=== PATIENT | female | born 1945 | race Caucasian/White ===

== ENCOUNTER 2018-12-02 07:45 | Outpatient (CLI) | payer MEDICARE, SELFPAY ==
[2018-12-02 09:50] LABS: ALT 11 U/L (12-78); AST 13 U/L (15-37); Albumin 3.6 g/dL (3.4-5.0); Alkaline Phosphatase 104 U/L (46-116); Anion Gap 8.9 mmol/L (3-11); BUN 26 mg/dL (7-18); Bilirubin, Total 0.6 mg/dL (0.2-1.0); CO2 28.1 mmol/L (21.0-32.0); CREATININE 0.91 mg/dL (0.55-1.02); Calcium 9.2 mg/dL (8.5-10.1); Chloride 103 mmol/L (98-107); Cholesterol 188 mg/dL (50-200); Glucose 95 mg/dL (70-100); HDL Cholesterol 49 mg/dL (40-60); LDL CHOLESTEROL 119 mg/dL (<100); Potassium 4.4 mmol/L (3.5-5.1); Sodium 140 mmol/L (136-145); TSH (W/Ref FT4) 3.55 uIU/mL (0.358-3.74); Total Protein 6.7 g/dL (6.4-8.2); Triglyceride 90 mg/dL (30-150); Vitamin B12 1383 pg/mL (193-986)
== END 2018-12-02 08:05 ==
DX: E03.9 Hypothyroidism, unspecified (principal); I10 Essential (primary) hypertension; K21.0 Gastro-esophageal reflux disease with esophagitis; D51.8 Other vitamin B12 deficiency anemias; E53.8 Deficiency of other specified B group vitamins; F32.9 Major depressive disorder, single episode, unspecified; F41.9 Anxiety disorder, unspecified; G20 Parkinson's disease; G89.21 Chronic pain due to trauma; Z13.220 Encounter for screening for lipoid disorders
CPT/HCPCS: 36415; 80053; 80061; 83721; 82607; 84443

== ENCOUNTER 2019-05-31 07:56 | Outpatient (CLI) | payer MEDICARE, SELFPAY ==
--- NOTE | 2019-05-31 10:46 | DI.US_ITS ---
EXAM: US BREAST LT COMPLETE CLINICAL HISTORY: 1CM CYST ON LEFT UPPER CHEST/BREAST, H/O PREVIOUS BIOPSY BUT NO CANCER, N60.02, N6 0.09. TECHNIQUE: Ultrasound was performed using standard protocol. COMPARISON: THERE ARE NO COMPARISON BREAST ULTRASOUNDS AVAILABLE FINDINGS: There is a 1.3 x 1.3 x 1.8 cm mass in the left breast at 11 o'clock 10 cm from the nipple. Borders o f the lesion are somewhat irregular. Posterior shadowing is identified. The findings are certainly suspicious for a neoplasm. Further evaluation with mammograms is recommended. The mass could be bio psied with the ultrasound guidance. This is a grade 0 ultrasound examination and further evaluation with mammograms is suggested.
== END 2019-05-31 08:16 ==
DX: N60.02 Solitary cyst of left breast (principal); N63.22 Unspecified lump in the left breast, upper inner quadrant
CPT/HCPCS: 76642

== ENCOUNTER 2019-06-01 01:10 | Outpatient (CLI) | payer MEDICARE, SELFPAY ==
--- NOTE | 2019-06-01 07:40 | DI.MAMMO_ITS ---
EXAM: MG MAMMO DIAGNOSTIC BI CLINICAL HISTORY: LUMP OF BREAST/ABNORMAL U/S. TECHNIQUE: Mammograms were interpreted according to the usual protocol including computer analysis w [employer] Count CAD system, tomosynthesis and C-view imaging. COMPARISON: Comparison is made with 12/02/17. FINDINGS: The breasts are of moderate radiodensity. When compared with the prior examination of 12/02/2017, int erval development of a 14 mm posterior left breast mass is identified and is seen only on the mediola teral image. There are no suspicious calcifications. Recent ultrasound demonstrated the left breast mass which is highly suspicious for a malignancy. IMPRESSION: This is a category 4 examination. Further evaluation with a biopsy is recommended. BI-RADS Cat 4 - Suspicious Abnormality: Biopsy should be considered. Breast Density - Category B - Scattered areas of fibroglandular density.
== END 2019-06-01 01:30 ==
DX: N63.22 Unspecified lump in the left breast, upper inner quadrant (principal)
CPT/HCPCS: 77062; 77066; G0279

== ENCOUNTER → 2019-06-06 13:41 | Outpatient (BNVA) | payer MEDICARE, SELFPAY | PROVIDERS: Visit Provider Surgery | DX: C50.912 Malignant neoplasm of unspecified site of left female breast (principal) | CPT/HCPCS: 19100; 99204; 99215 ==

== ENCOUNTER 2019-06-06 15:48 | Outpatient (REF) | payer MEDICARE, SELFPAY ==
--- NOTE | 2019-06-06 15:02 | BREAST_PTH ---
PATIENT: Daja Tolentino LOC: [facility] U#:[id number] AGE/SX: 73/F ROOM: RE06/06/[address]: Liya Hernandez MD : 1945 BED: DIS: 06/06/2019 SPEC #: [id number] RECD: 06/06/19 17:48 STATUS: JEANINE REElzbieta #: [id number] HUMA: 06/06/19 15:[address]: Liya Hernandez DEPT: Surgical Specimen RECD BY: Jnay Sellers ENTERED: 06/06/19 17:49 SP TYPE: Breast OTHR DR: Candie Guy APRN Tissues: 1 - BREAST BX NEEDLE Procedures: GROSS AND MICRO LEVEL 4 HERCEPTEST ESTROGEN/PROGESTERONE RECEPTOR IPEX STAIN Comments: [id number]
== END 2019-06-06 16:08 ==
LOC: LBN 15:48
PROVIDERS: Visit Provider Surgery
DX: C50.912 Malignant neoplasm of unspecified site of left female breast (principal); Z17.0 Estrogen receptor positive status [ER+]
CPT/HCPCS: 88305; 88360

== ENCOUNTER → 2019-06-13 13:53 | Outpatient (BNVA) | payer MEDICARE, SELFPAY | PROVIDERS: Visit Provider Surgery | DX: C50.212 Malignant neoplasm of upper-inner quadrant of left female breast (principal); I10 Essential (primary) hypertension | CPT/HCPCS: 99214 ==

== ENCOUNTER 2019-06-14 09:23 | Outpatient (CLI) | payer MEDICARE, SELFPAY ==
--- NOTE | 2019-06-14 09:53 | DI.RAD_ITS ---
EXAM: XR CHEST 2V PA LATERAL INDICATION: Left breast cancer C50.912. COMPARISON: CHEST 2 VIEWS PA,LAT from 12/29/2008 TECHNIQUE: 2D digital imaging was performed. FINDINGS: The heart size is normal. The lungs are well inflated and clear. No infiltrate, effusion or mass is seen. There are no suspicious bony abnormalities. IMPRESSION: No acute abnormality..
[2019-06-14 09:58] LABS: Abs Immature Grans 0.01 k/cumm (0.0-0.09); Absolute Basophil Count 0.04 k/cumm (0.0-0.2); Absolute Eosinophil Count 0.24 k/cumm (0.0-0.7); Absolute Lymphocyte Count 1.82 k/cumm (1.2-3.4); Absolute Monocyte Count 0.56 k/cumm (0.11-0.7); Absolute Neutrophil Count 4.14 k/cumm (1.2-6.7); Basophils % 0.6; Eosinophils % 3.5; HCT 39.5 % (36.0-46.0); HGB 12.5 g/dL (12.0-15.5); Immature Grans % 0.1; Lymphocytes % 26.7; Mean Corp. HGB Concentration 31.6 g/dL (32.0-36.0); Mean Corpuscular Hemoglobin 28.7 pg (27.0-33.0); Mean Corpuscular Volume 90.8 fL (80-95); Mean Platelet Volume 11.6 fL (8.0-11.0); Monocytes % 8.2; Neutrophils % 60.9; Platelet Count 244 x1000/uL (130-400); RBC 4.35 m/cumm (4.00-5.20); RBC Distribution Width 13.5 % (11.7-14.6); White Blood Cell Count 6.81 k/cumm (4.4-10.8)
[2019-06-14 10:55] LABS: ALT 8 U/L (14-59); AST 14 U/L (15-37); Albumin 3.6 g/dL (3.4-5.0); Alkaline Phosphatase 104 U/L (46-116); Anion Gap 7.3 mmol/L (3-11); BUN 25 mg/dL (7-18); Bilirubin, Total 0.5 mg/dL (0.2-1.0); CO2 28.7 mmol/L (21.0-32.0); CREATININE 0.83 mg/dL (0.55-1.02); Calcium 8.7 mg/dL (8.5-10.1); Chloride 104 mmol/L (98-107); Glucose 118 mg/dL (70-100); Sodium 140 mmol/L (136-145); Total Protein 6.6 g/dL (6.4-8.2)
[2019-06-14 11:06] LABS: Calculated LDL 119 mg/dL; Cholesterol 193 mg/dL (50-200); HDL Cholesterol 47 mg/dL (40-60); TSH (W/Ref FT4) 2.49 uIU/mL (0.36-3.74); Triglyceride 136 mg/dL (30-150)
[2019-06-14 23:02] LABS: Ferritin 26 ng/mL (8-388)
== END 2019-06-14 09:43 ==
PROVIDERS: Visit Provider Surgery
DX: E03.9 Hypothyroidism, unspecified (principal); F32.9 Major depressive disorder, single episode, unspecified; G20 Parkinson's disease; G47.00 Insomnia, unspecified; I10 Essential (primary) hypertension; Z13.220 Encounter for screening for lipoid disorders; C50.912 Malignant neoplasm of unspecified site of left female breast
CPT/HCPCS: 36415; 80053; 80061; 71046; 82728; 84443; 85025

== ENCOUNTER 2019-06-23 06:50 | Day surgery (SDC) | payer MEDICARE, SELFPAY ==
[2019-06-23] VITALS (12 sets, daily range): BP systolic 140–196; BP diastolic 50–89; PULSE 71–88; RESP 10–21; TEMP 36.3–37; O2SAT 94–100
--- NOTE | 2019-06-23 07:30 | DI.NM_ITS ---
EXAM: NM SENTNODE INJ ONLY CLINICAL HISTORY: Breast Cancer,C50.912. TECHNIQUE: Injected Dose: 1 mCi Tc-99m filtered sulfur colloid were administered subcutaneously in t he left breast by Dr. Hernandez. Images: None were obtained. COMPARISON: No exams were available for comparison
[2019-06-23] MEDS: Lactated Ringers 1,000 ML 80 ML IV ×3 (08:31→13:43)
--- NOTE | 2019-06-23 12:30 | BREAST_PTH ---
PATIENT: Daja Tolentino LOC: [facility] U#:[id number] AGE/SX: 73/F ROOM: RE06/23/[address]: Liya Hernandez MD : 1945 BED: DIS: 06/23/2019 SPEC #: [id number] RECD: 06/24/19 12:05 STATUS: JEANINE REElzbieta #: [id number] HUMA: 06/23/19 12:[address]: Liya Hernandez DEPT: Surgical Specimen RECD BY: Jany Sellers ENTERED: 06/24/19 12:08 SP TYPE: Breast OTHR DR: Candie Guy APRN Tissues: 1 - BREAST INCISION/EXCISION 2 - BREAST INCISION/EXCISION 3 - BREAST INCISION/EXCISION 4 - BREAST INCISION/EXCISION Procedures: IMMUNOPEROXIDASE STAIN GROSS AND MICRO LEVEL 5 SPECIAL STAIN 1 Comments: [id number] (ALL SPECIMENS RADIOACTIVE)
--- NOTE | 2019-06-23 13:18 | PDOC.DSDIS_ITS ---
Discharge Plan Disposition Patient Disposition: HOME Condition: Good Discharge Details Reason For Visit: Left breast lumpectomy and sentinel node biopsy Attending Provider: Liya Hernandez Primary Care Provider: Candie Guy Home Meds and New Rx's Prescriptions: New hydrocodone-acetaminophen 5-325 mg Tablet 1 tab PO Q4H PRN PRN (Reason: Pain) Qty: 20 RF: 0 Continued acetaminophen [Tylenol Extra Strength] 500 mg tablet 500 mg PO Q6H PRNRF: 0 cholecalciferol (vitamin D3) 1,000 UNIT tablet 1,000 unit PO DAILY Qty: 100 RF: 4 nystatin 60 GM powder 1 angi Topical BID PRNQty: 60 RF: 11 gabapentin 300 mg capsule 300 mg PO TID Qty: 300 RF: 4 lorazepam [Ativan] 1 mg tablet 1 mg PO BID PRN Qty: 30 RF: 0 levothyroxine 100 mcg tablet 100 mcg PO DAILY Qty: 30 RF: 11 escitalopram oxalate [Lexapro] 10 mg tablet 10 mg PO DAILY Qty: 30 RF: 11 carbidopa-levodopa 50-200 mg tablet extended release 1 tab PO TID Qty: 90 RF: 11 omeprazole 40 mg capsule,delayed release(DR/EC) 40 mg PO DAILY Qty: 30 RF: 11 naproxen 375 mg tablet 375 mg PO BID PRN (Reason: pain) Qty: 180 RF: 3 Discharge Instructions Additional Instructions: The top bandage can be removed tomorrow. The steri strips will usually stick for about a week. When the edges start to curl up, they can be removed. It is okay to shower tomorrow, the water can run over the steri strips Do not swim or soak in a tub for two weeks Call for any concerns including fever, increased pain, vomiting, incision redness or drainage. Do not lift more than 15 pounds for two weeks. Walking and stairs are fine. Do not drive if on narcotic pain meds or if limited by pain. May use Tylenol alternating with ibuprofen for pain control. Ice is also an option. The maximum dose for Tylenol is 4000 mg/day. May use ibuprofen 800 mg every 8 hours as needed. If concerned about constipation, you may use a stool softener or milk of magnesia. Referrals: Liya Hernandez MD [ [facility] STAFF PHYSICIAN] - (Return in 7-10 days) Activity:: Light for two weeks Remove Dressings/Wound Care:: 24 hours Shower/Bathe:: 24 hours Diet:: As Tolerated Discharge Orders Discharge Orders: Discharge Order (Routine); Ordered 06/23/19 Ordered By: Liya Hernandez DS: Diagnosis Discharge Diagnosis (1) Breast cancer, left: Status: Acute
[2019-06-23] MEDS: fentaNYL 100 MCG/2 ML VIAL IVP ×2 (13:41→14:02)
[2019-06-23] MEDS: HYDROcodone 5/Acetaminophen 325 TAB PO ×2 (14:22→15:19)
[2019-06-23] MEDS: Ibuprofen 800 MG TAB PO (14:53)
--- NOTE | 2019-06-24 11:02 | ROE_ITS ---
DATE OF PROCEDURE: June 23, 2019 PREOPERATIVE DIAGNOSIS: Left breast cancer. POSTOPERATIVE DIAGNOSIS: Same. PROCEDURE: 1. Left breast lumpectomy. 2. Left axillary sentinel node biopsy. SURGEON: Liya Hernandez M.D. ANESTHESIA: Local and general. INDICATIONS: This is a 73-year-old woman who noted a left breast mass. Core biopsy revealed this to be an invasive ductal cancer. She presents for surgical treatment. PROCEDURE: The patient was taken to nuclear medicine preoperatively and underwent injection of radioactive sulfur colloid into the areolar region. Later in the morning she was taken to the Operating Room. After induction of general anesthetic, her left areola was cleansed with an alcohol swab and then 5cc of methylene blue was injected into the lateral areola. Her left breast and axilla were then prepped and draped sterilely. An area of high uptake was identified in the left axilla using the gamma probe. Skin here was infiltrated with local anesthetic and a small incision made. Subcutaneous tissue was divided with cautery. The lymph node was identified and grasped with an Allis. This was excised completely with cautery. The counts outside of the axilla measured 32,000. There was a second area of high uptake in the axilla. The node at this location was slightly blue. It was removed with cautery with the counts being in the 14,000 range. The background count was 2900. Palpation revealed no palpable lymph nodes. There was good hemostasis so the skin was closed with a running #4-0 Monocryl subcuticular stitch. The lumpectomy was then performed. The mass was located at the 10 to 11 o'clock position, fairly near to the sternum. The skin was infiltrated with local anesthetic and an elliptical incision made over the mass. Skin flaps were raised superiorly and inferiorly and then a wide lumpectomy specimen taken using Metzenbaum scissors. The specimen was labeled with a short stitch superior and long stitch lateral. The mass was noted to be closer to the medial margin, so I did take an additional medial margin. Of note, the deep margin was carried down to the pectoralis muscle. There was a vessel that was clamped and tied with a Vicryl tie. The wound was irrigated and suctioned clean. There was good hemostasis. The deep dermis was approximated with buried interrupted #4-0 Monocryl sutures and then the skin closed with a running #4-0 Monocryl subcuticular stitch. She tolerated the procedure well and was stable to recovery. cc: MANNY Aleman
== END 2019-06-23 17:00 | disposition home or self-care (01) ==
PROVIDERS: Visit Provider Surgery
PROC: (CPT 38525; principal; 2019-06-23 11:30)
DX: C50.212 Malignant neoplasm of upper-inner quadrant of left female breast (principal); Z17.0 Estrogen receptor positive status [ER+]; I10 Essential (primary) hypertension; K21.9 Gastro-esophageal reflux disease without esophagitis
CPT/HCPCS: 38525; 19301; 38792; A9541; 88307; 88312; 88361; J2250; J2405; J3010

== ENCOUNTER → 2019-06-30 10:40 | Outpatient (BNVA) | payer MEDICARE, SELFPAY | PROVIDERS: Visit Provider Surgery | DX: C50.912 Malignant neoplasm of unspecified site of left female breast (principal) ==

== ENCOUNTER → 2019-07-28 09:15 | Outpatient (BNVA) | payer MEDICARE, SELFPAY | PROVIDERS: Visit Provider Surgery | DX: Z48.89 Encounter for other specified surgical aftercare (principal) ==

== ENCOUNTER 2019-08-03 01:39 | Outpatient (CLI) | payer MEDICARE, SELFPAY ==
--- NOTE | 2019-08-03 17:10 | DI.DEXA_ITS ---
EXAM: XR DEXA BONE DENSITY W/WO DANIEL CLINICAL HISTORY: ASYMPTOMATIC MENOPAUSAL STATE Z78.0, BREAST CANCER STAGE 1 C50.912, SNF USE OF AROMATASE INHIBITOR, Z79.811 TECHNIQUE: DEXA scan was performed according to the usual protocol. COMPARISON: SEPTEMBER 2007 FINDINGS: Findings for left hip scanning are T-score 0.9 with left femoral neck T-score 0.2. Prior examination of September 2007 showed left hip scope T score 1.0. Lumbar spine scanning shows T-score 2.5. Prior examination showed T-score 1.3 in September 2007. Left forearm scanning shows T-score -0.4. IMPRESSION: Findings consistent with normal bone density according to the WHO criteria. Please note that the late ral vertebral scanogram shows no evidence of a vertebral compression fracture.
== END 2019-08-03 01:59 ==
PROVIDERS: Visit Provider Internal Medicine
DX: C50.912 Malignant neoplasm of unspecified site of left female breast (principal); Z79.811 Long term (current) use of aromatase inhibitors; Z13.820 Encounter for screening for osteoporosis; Z78.0 Asymptomatic menopausal state
CPT/HCPCS: 77080

== ENCOUNTER 2019-08-29 09:20 | Outpatient (CLI) | payer MEDICARE, SELFPAY ==
[2019-08-29 09:40] LABS: Abs Immature Grans 0.01 k/cumm (0.0-0.09); Absolute Basophil Count 0.04 k/cumm (0.0-0.2); Absolute Eosinophil Count 0.28 k/cumm (0.0-0.7); Absolute Lymphocyte Count 2.09 k/cumm (1.2-3.4); Absolute Monocyte Count 0.59 k/cumm (0.11-0.7); Absolute Neutrophil Count 4.32 k/cumm (1.2-6.7); Basophils % 0.5; Eosinophils % 3.8; HGB 12.7 g/dL (12.0-15.5); Immature Grans % 0.1; Lymphocytes % 28.5; Mean Corp. HGB Concentration 31.8 g/dL (32.0-36.0); Mean Corpuscular Hemoglobin 28.3 pg (27.0-33.0); Mean Corpuscular Volume 89.3 fL (80-95); Mean Platelet Volume 11.2 fL (8.0-11.0); Neutrophils % 59.1; Platelet Count 274 x1000/uL (130-400); RBC 4.48 m/cumm (4.00-5.20); RBC Distribution Width 13.3 % (11.7-14.6); White Blood Cell Count 7.33 k/cumm (4.4-10.8)
[2019-08-29 10:44] LABS: ALT 21 U/L (14-59); AST 17 U/L (15-37); Albumin 3.5 g/dL (3.4-5.0); Alkaline Phosphatase 98 U/L (46-116); Anion Gap 8.3 mmol/L (3-11); BUN 24 mg/dL (7-18); Bilirubin, Total 0.4 mg/dL (0.2-1.0); CO2 27.7 mmol/L (21.0-32.0); CREATININE 0.81 mg/dL (0.55-1.02); Calcium 9.3 mg/dL (8.5-10.1); Chloride 106 mmol/L (98-107); Glucose 113 mg/dL (74-106); Potassium 4.3 mmol/L (3.5-5.1); Sodium 142 mmol/L (136-145); Total Protein 6.6 g/dL (6.4-8.2)
== END 2019-08-29 09:40 ==
PROVIDERS: Visit Provider Internal Medicine
DX: C50.912 Malignant neoplasm of unspecified site of left female breast (principal); Z17.0 Estrogen receptor positive status [ER+]
CPT/HCPCS: 36415; 80053; 85025

== ENCOUNTER 2019-11-29 08:33 | Outpatient (CLI) | payer MEDICARE, SELFPAY ==
[2019-11-29 09:06] LABS: Absolute Basophil Count 0.03 k/cumm (0.0-0.2); Absolute Eosinophil Count 0.23 k/cumm (0.0-0.7); Absolute Monocyte Count 0.32 k/cumm (0.11-0.7); Absolute Neutrophil Count 3.86 k/cumm (1.2-6.7); Basophils % 0.5; Eosinophils % 3.7; HCT 39.8 % (36.0-46.0); HGB 12.6 g/dL (12.0-15.5); Lymphocytes % 28.8; Mean Corp. HGB Concentration 31.7 g/dL (32.0-36.0); Mean Corpuscular Hemoglobin 28.3 pg (27.0-33.0); Mean Corpuscular Volume 89.4 fL (80-95); Mean Platelet Volume 11.6 fL (8.0-11.0); Monocytes % 5.1; Neutrophils % 61.9; Platelet Count 261 x1000/uL (130-400); RBC 4.45 m/cumm (4.00-5.20); RBC Distribution Width 14.3 % (11.7-14.6); White Blood Cell Count 6.24 k/cumm (4.4-10.8)
[2019-11-29 09:24] LABS: ALT 11 U/L (14-59); AST 17 U/L (15-37); Albumin 3.4 g/dL (3.4-5.0); Alkaline Phosphatase 102 U/L (46-116); Anion Gap 9.7 mmol/L (3-11); BUN 26 mg/dL (7-18); Bilirubin, Total 0.5 mg/dL (0.2-1.0); CO2 26.3 mmol/L (21.0-32.0); CREATININE 0.99 mg/dL (0.55-1.02); Chloride 105 mmol/L (98-107); Estimated GFR 54.54 (mL/min/1.73m2); Glucose 124 mg/dL (74-106); Potassium 3.9 mmol/L (3.5-5.1); Sodium 141 mmol/L (136-145); Total Protein 6.9 g/dL (6.4-8.2)
== END 2019-11-29 08:53 ==
PROVIDERS: Visit Provider Internal Medicine
DX: C50.212 Malignant neoplasm of upper-inner quadrant of left female breast (principal); Z17.0 Estrogen receptor positive status [ER+]
CPT/HCPCS: 36415; 80053; 85025

== ENCOUNTER 2020-05-21 09:36 | Outpatient (CLI) | payer MEDICARE, MEDICAID, SELFPAY ==
[2020-05-21 10:32] LABS: Hemoglobin A1C 5.5 % (<5.7)
[2020-05-21 11:26] LABS: Anion Gap 6.8 mmol/L (3-11); BUN 18 mg/dL (7-18); CO2 29.2 mmol/L (21.0-32.0); CREATININE 0.87 mg/dL (0.55-1.02); Calcium 9.4 mg/dL (8.5-10.1); Chloride 105 mmol/L (98-107); Glucose 89 mg/dL (74-106); Potassium 4.5 mmol/L (3.5-5.1); Sodium 141 mmol/L (136-145); TSH (W/Ref FT4) 1.47 uIU/mL (0.36-3.74)
== END 2020-05-21 09:56 ==
DX: E03.9 Hypothyroidism, unspecified (principal); R73.01 Impaired fasting glucose; R63.8 Other symptoms and signs concerning food and fluid intake; G47.00 Insomnia, unspecified
CPT/HCPCS: 36415; 80048; 83036; 84443

== ENCOUNTER 2020-06-12 00:46 | Outpatient (CLI) | payer MEDICARE, MEDICAID, SELFPAY ==
--- NOTE | 2020-06-12 14:29 | DI.MAMMO_ITS ---
EXAM: MG MAMMO SCREENING 60 MIN DUR CLINICAL HISTORY: breast cancer screening,PERSONAL H/O BREAST CA,Z85.3 TECHNIQUE: Mammograms were interpreted according to the usual protocol including computer analysis w Pro[employer]ible CAD system, tomosynthesis and C-view imaging. COMPARISON: FINDINGS: The patient has reportedly had lumpectomy for breast carcinoma of the upper inner quadrant of the lef t breast within the last year. There is irregular radiodensity in this region consistent with postsu rgical change. No mass identified elsewhere in either breast. No clumped microcalcification seen. No other significant change in appearance comparison studies including November 2017. IMPRESSION: Presumed postsurgical changes left breast. No specific evidence of malignancy at this time. Follow -up mammogram requested in 12 months. BI-RADS Category 2 - Benign Findings Breast Density - Category B - Scattered areas of fibroglandular density
== END 2020-06-12 01:06 ==
DX: Z12.31 Encounter for screening mammogram for malignant neoplasm of breast (principal); Z85.3 Personal history of malignant neoplasm of breast
CPT/HCPCS: 77063; 77067

== ENCOUNTER 2020-09-26 22:20 | Emergency (ER) | payer MEDICARE, MEDICAID, SELFPAY ==
--- NOTE | 2020-09-26 22:15 | RT.EKG_ITS ---
APPROVED REPORT Exam: Resting ECG Patient Location: E HR:66 bpm ECG Measurements Heart Rate 66 AXIS FL 146 P 31 QRSd 94 QRS -17 QT 420 T -1 QTc 440 Conclusion Sinus rhythm...normal P axis, V-rate 60- 99
[2020-09-26 22:25] VITALS: BP 175/85; PULSE 80; RESP 22; TEMP 36.1; O2SAT 98
--- NOTE | 2020-09-26 22:30 | DI.CT_ITS ---
EXAM: CT THORAX ABD/PEL CTA CLINICAL HISTORY: left sided chest and abdominal pain. TECHNIQUE: Imaging Protocol: Axial CT angiography was performed with multi-slice acquisition and m ulti-planar and/or 3D reconstructions. CONTRAST MATERIAL: Intravenous: Omnipaque 350 Contrast volume:100 mL Oral: No COMPARISON: CT CHEST WITH CONTRAST from 01/01/2009 FINDINGS: CHEST: Tracheobronchial tree: Patent where visualized. Pulmonary parenchyma: No consolidation or dominant measurable mass. No architectural distortion. Scar ring and/or atelectasis is in the lung bases. Pulmonary Arteries: No evidence of filling defect to suggest pulmonary emboli. Mediastinum and Toyin: No dominant adenopathy or fluid collection. There is a large hiatal hernia. Visualized thyroid: Unremarkable. Pleura: No effusion or pneumothorax. Heart: The heart is not dilated. No coronary artery calcifications are seen. No pericardial effusion. Aorta: Thoracic aorta non-dilated. Atherosclerosis. No evidence of dissection. Soft Tissues: Unremarkable. Bones: Degenerative changes. ABDOMEN AND PELVIS: Abdomen: Celiac axis/mesenteric arteries: No evidence of occlusion or significant stenosis. Renal Arteries: No evidence of occlusion or significant stenosis. There is a single renal artery per fusing each kidney. Atherosclerosis at the origin of the right renal artery. Aorta: No evidence of occlusion or significant stenosis. No aneurysm or dissection. Atherosclerosi s. Pelvis: Iliac Arteries: No evidence of occlusion or significant stenosis. Atherosclerosis. Common Femoral Arteries: No evidence of occlusion or significant stenosis. ABDOMEN: Liver: Diffuse decreased attenuation of the liver consistent with fatty infiltration. No measurable mass. Portal, Superior Mesenteric, and Splenic Veins: Unremarkable. Gallbladder and Biliary Tract: No radiodense calculus or dilation. Pancreas: Normal density, no abnormal calcifications or inflammatory process. Spleen: Normal. Adrenals: No masses seen. Kidneys: Normal size, contour and axis. No radiodense stones or obstructive uropathy. No masses seen. Bowel: No obstruction or bowel wall thickening. No evidence of appendicitis. There is a large hiatal hernia. Peritoneal Cavity: No ascites, collection or mesenteric inflammatory response. No free air. Lymph Nodes: Within normal limits. Bones: Degenerative change. Soft Tissues: Unremarkable. PELVIS: Bladder: Symmetric distention, no gross wall thickening. Reproductive Organs: Status post hysterectomy. Lymph Nodes: Within normal limits. Bones: Within normal limits. IMPRESSION: 1. Normal CT Angiogram of the chest, abdomen and pelvis. 2. No acute abdominal or pelvic process. 3. No acute pulmonary process. RADIATION DOSE DELIVERED: 1,120.48mGy.cm Total DLP DATA REPOSITORY: All CT scans at this facility are submitted to the National Radiology Data Registry (NRDR) Dose Index Registry (DIR) with the [employer] (ACR). RADIATION OPTIMIZATION: All CT scans at this facility use at least one of these dose optimization te chniques: automated exposure control; mA and/or kV adjustment per patient size (includes targeted exa ms where dose is matched to clinical indication); or iterative reconstruction.
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
[2020-09-26] MEDS: Omnipaque 350 MG/ML 100 ML BTL IJ (22:48)
[2020-09-26] MEDS: Normal Saline - Diluent 50 ML VIAL IV (22:49)
[2020-09-26 22:51] LABS: Abs Immature Grans 0.02 10^3/uL (0.0-0.06); Absolute Basophil Count 0.04 10^3/uL (0.0-0.2); Absolute Eosinophil Count 0.24 10^3/uL (0.0-0.7); Absolute Lymphocyte Count 3.11 10^3/uL (1.2-3.4); Absolute Monocyte Count 0.91 10^3/uL (0.1-0.8); Absolute Neutrophil Count 3.79 10^3/uL (1.2-6.7); Basophils % 0.5; HCT 38.1 % (36.0-46.0); Immature Grans % 0.2; Lymphocytes % 38.3; MCH 28.1 pg (27.0-33.0); MCHC 31.5 % (32.0-36.0); MCV 89.2 fL (80-95); MPV 11.6 fL (8.0-11.0); Monocytes % 11.2; Neutrophils % 46.8; Nucleated RBC 0 %; Platelet Count 259 10^3/uL (130-400); RBC 4.27 10^6/uL (3.93-5.22); RDW-SD 42.7 fL; WBC 8.11 10^3/uL (4.4-10.8)
[2020-09-26] MEDS: Acetaminophen 500 MG TAB 1000 MG PO (22:58)
[2020-09-26 23:09] LABS: INR 1.2 (0.9-1.1); PTT Activated 26.1 sec (21.0-27.5); Prothrombin Time 11.6 sec (9.3-11.0)
[2020-09-26 23:11] LABS: ALT 12 U/L (14-59); AST 16 U/L (15-37); Albumin 3.4 g/dL (3.4-5.0); Alkaline Phosphatase 122 U/L (46-116); Anion Gap 6.2 mmol/L (3-11); BUN 15 mg/dL (7-18); Bilirubin, Direct 0.07 mg/dL (0.00-0.20); Bilirubin, Total 0.3 mg/dL (0.2-1.0); CO2 27.8 mmol/L (21.0-32.0); CREATININE 0.94 mg/dL (0.55-1.02); Calcium 8.8 mg/dL (8.5-10.1); Chloride 105 mmol/L (98-107); Estimated GFR 57.74 (mL/min/1.73m2); Glucose 94 mg/dL (74-106); Lipase 153 U/L (73-393); Magnesium 1.8 mg/dL (1.8-2.4); Potassium 3.9 mmol/L (3.5-5.1); Sodium 139 mmol/L (136-145); Total Protein 7.2 g/dL (6.4-8.2)
[2020-09-26 23:16] LABS: Troponin I < 0.05 ng/mL (<0.06)
[2020-09-26 23:34] VITALS: BP 176/84; PULSE 58; PULSE 60; RESP 10; O2SAT 96
[2020-09-26 23:35] VITALS: PULSE 61; RESP 8; O2SAT 97
--- NOTE | 2020-09-26 23:39 | DI.VRAD_ITS ---
PROCEDURE INFORMATION: Exam: CT Angiography Chest With Contrast Exam date and time: 09/26/2020 10:36 PM Age: 75 years old Clinical indication: Left-sided chest pain; Abdominal pain; Generalized TECHNIQUE: Imaging protocol: Computed tomographic angiography of the chest with intravenous contrast. 3D rendering (Not supervised by radiologist): MIP and/or 3D reconstructed images were created by the technologist. Radiation optimization: All CT scans at this facility use at least one of these dose optimization techniques: automated exposure control; mA and/or kV adjustment per patient size (includes targeted exams where dose is matched to clinical indication); or iterative reconstruction. Contrast material: [id number]; Contrast volume: 100 ml; Contrast route: INTRAVENOUS (IV); COMPARISON: CR XR CHEST 2V PA LATERAL 06/14/2019 10:04 AM FINDINGS: Pulmonary arteries: Normal. No pulmonary emboli. Aorta: Unremarkable. No aortic aneurysm. No aortic dissection. Lungs: Minimal dependent atelectasis Pleural space: Unremarkable. No pneumothorax. No pleural effusion. Heart: Unremarkable. No cardiomegaly. No pericardial effusion. Mediastinal space: Moderate hiatal hernia Lymph nodes: Small nonspecific mediastinal lymph nodes are present. Bones/joints: Unremarkable. No acute fracture. Soft tissues: Unremarkable. IMPRESSION: No acute findings PROCEDURE INFORMATION: Exam: CT Angiography Abdomen and Pelvis With Contrast Exam date and time: 09/26/2020 10:36 PM Age: 75 years old Clinical indication: Left-sided chest pain; Abdominal pain; Generalized TECHNIQUE: Imaging protocol: Computed tomographic angiography of the abdomen and pelvis with intravenous contrast material. 3D rendering (Not supervised by radiologist): MIP and/or 3D reconstructed images were created by the technologist. Radiation optimization: All CT scans at this facility use at least one of these dose optimization techniques: automated exposure control; mA and/or kV adjustment per patient size (includes targeted exams where dose is matched to clinical indication); or iterative reconstruction. Contrast material: [id number]; Contrast volume: 100 ml; Contrast route: INTRAVENOUS (IV); COMPARISON: CR XR CHEST 2V PA LATERAL 06/14/2019 10:04 AM FINDINGS: Aorta: No aortic aneurysm. No aortic dissection. Celiac trunk and mesenteric arteries: No occlusion or significant stenosis. Renal arteries: No occlusion or significant stenosis. Right iliac arteries: No occlusion or significant stenosis. Left iliac arteries: No occlusion or significant stenosis. Liver: Hepatic steatosis is present. Gallbladder and bile ducts: Unremarkable. No calcified stones. No ductal dilation. Pancreas: Unremarkable. No mass. No ductal dilation. Spleen: Unremarkable. No splenomegaly. Adrenals: Unremarkable. No mass. Kidneys and ureters: Unremarkable. No solid mass. No hydronephrosis. Stomach and bowel: Unremarkable. No obstruction. No mucosal thickening. Appendix: No evidence of appendicitis. Intraperitoneal space: Unremarkable. No free air. No significant fluid collection. Lymph nodes: Unremarkable. No enlarged lymph nodes. Urinary bladder: Unremarkable. No mass. Reproductive: The patient is status post hysterectomy. Bones/joints: No acute fracture. No dislocation. Soft tissues: Unremarkable. IMPRESSION: No acute findings Dictated and Authenticated by: Ramon Foy MD. Ordering:AYANNA Plascencia MD
[2020-09-26 23:40] VITALS: PULSE 59; RESP 9; O2SAT 97
[2020-09-26 23:45] VITALS: BP 171/85; PULSE 58; PULSE 61; RESP 17; O2SAT 96
[2020-09-26 23:50] VITALS: PULSE 59; RESP 12; O2SAT 96
== END 2020-09-27 00:05 | disposition home or self-care (01) ==
PROVIDERS: Emergency Provider Emergency Medicine
DX: R07.81 Pleurodynia (principal); M54.2 Cervicalgia; R10.12 Left upper quadrant pain; I10 Essential (primary) hypertension; G20 Parkinson's disease
CPT/HCPCS: 36415; 71275; 74177; 80053; 83690; 93005; 99285; 82248; 83735; 84484; 85025; 85610; 85730; 93010; 99284; J3490

== ENCOUNTER 2020-12-06 10:43 | Observation (INO) | payer MEDICARE, MEDICAID, SELFPAY ==
[2020-12-06] VITALS (29 sets, daily range): BP systolic 127–174; BP diastolic 64–108; PULSE 54–69; RESP 9–20; TEMP 36–37.3; O2SAT 96–100
--- NOTE | 2020-12-06 10:45 | RT.EKG_ITS ---
APPROVED REPORT Exam: Resting ECG Patient Location: E HR:69 bpm ECG Measurements Heart Rate 69 AXIS TX 153 P 34 QRSd 97 QRS -11 QT 414 T 5 QTc 443 Conclusion Sinus rhythm...normal P axis, V-rate 60- 99
--- NOTE | 2020-12-06 11:00 | DI.RAD_ITS ---
EXAM: XR CHEST 2V PA LATERAL CLINICAL HISTORY: tia. TECHNIQUE: 2D digital imaging was performed. COMPARISON: CR XR CHEST 2V PA LATERAL from 06/14/2019 FINDINGS: Heart size is normal. The mediastinum is not widened. Lungs are clear. No infiltrates nor pleural effusions. IMPRESSION: No acute pulmonary findings.No significant change compared 06/14/2019. DATA REPOSITORY: RADIATION DOSE DELIVERED:
--- NOTE | 2020-12-06 11:08 | DI.CT_ITS ---
EXAM: CT BRAIN NECK CTA CLINICAL HISTORY: headache, repetitive speech. TECHNIQUE: Imaging Protocol: Axial CT angiography was performed with multi-slice acquisition and mu lti-planar and/or 3D reconstructions. CONTRAST MATERIAL: Intravenous: Omnipaque 350 Contrast volume:85 cc COMPARISON: CT CT THORAX ABD/PEL CTA from 09/26/2020 FINDINGS: CTA Neck W: Aortic arch anatomy: The aortic arch anatomy is conventional. There is no evidence of significant brianne nosis of the great vessels at their origins off the aortic arch. Anterior circulation: Common carotid arteries ascend with normal luminal diameters and no significant plaque. Also no sign ificant stenosis at the carotid bifurcations. There is some partially calcified plaque at the origin of the left internal carotid artery with approximately 20 percent stenosis. Lesser amount of plaque is seen at the same location on the right side. No critical stenosis. No dissection. Both interna l carotid arteries are demonstrated to be patent in the upper neck as well as within the skull base-c arotid canals. Posterior circulation: Both vertebral arteries originated conventional fashion off of the subclavian arteries. No evidence of significant stenosis at the origin of these vessels nor in the subclavian arteries proximal to the vertebral artery takeoff points (which might result in subclavian steal syndrome). Both vertebral arteries ascend with normal equal diameters in the foramen transversarium and both con tribute to the formation of the basilar artery at the skull base. There is no heavy calcification of the vertebral arteries at the skull base. CTA Brain W: Anterior circulation: Both internal carotid arteries are patent in the skull base-carotid canals as well as within the cave rnous sinuses. Supraclinoid aspects of both vessels are patent and nonaneurysmal. Both middle cereb ral arteries are demonstrated to be patent out to the sylvian fissure branches. No intraluminal thro mbus. No aneurysm these vessels demonstrated. Both A1 segments are patent as are both anterior cere bral arteries. There is no evidence of aneurysm at the level of the anterior communicating artery no r elsewhere in the [id number]-[id number]-[id number]. Posterior circulation: Basilar artery is formed by both vertebral arteries at the skull base. Posterior inferior cerebellar arteries come off of the vertebral arteries at the skull base. Basilar artery ascends in the midlin e without intraluminal thrombus nor dissection. Distally it gives off the superior cerebellar arteri es and above this level terminates as bilateral posterior cerebral arteries which appear patent. The right posterior cerebral artery receives blood flow also from a posterior communicating artery on th e right side of the [id number]. There is no evidence of aneurysm at the tip of the basilar art john. CT BRAIN: There is no evidence of intracranial hemorrhage, mass effect, or shift of midline structures. There are no extra-axial fluid collections. Ventricles are not enlarged or shifted and there is no blood w ithin the ventricular system nor within the basal cisterns. There is periventricular hypodensity jesica aterally consistent with chronic small vessel disease. There are no ring enhancing lesions in the br ain. No abnormal meningeal enhancement, focal or diffuse. IMPRESSION: 1. Mild stenosis at the origin left internal carotid artery, approximately 20 percent. Lesser amount of stenosis at origin of the right internal carotid artery. No significant stenosis in the common c arotid arteries. No significant findings in the vertebral arteries. Both vertebral arteries contrib [place] to the formation of the basilar artery at the skull base. 2. Intracranial arteries are patent. No intraluminal thrombus. No aneurysm is evident. 3. No evidence of intracranial hemorrhage, intra or extra-axial. No ring enhancing lesions. Chron ic small vessel white matter ischemic changes in the periventricular white matter. RADIATION DOSE DELIVERED: 1,848.43mGy.cm Total DLP 1,848.43mGy.cm Total DLP DATA REPOSITORY: All CT scans at this facility are submitted to the National Radiology Data Registry (NRDR) Dose Index Registry (DIR) with the [employer] (A[employer]). RADIATION OPTIMIZATION: All CT scans at this facility use at least one of these dose optimization te chniques: automated exposure control; mA and/or kV adjustment per patient size (includes targeted exa ms where dose is matched to clinical indication); or iterative reconstruction.
[2020-12-06 11:19] LABS: Abs Immature Grans 0.02 10^3/uL (0.0-0.06); Absolute Basophil Count 0.05 10^3/uL (0.0-0.2); Absolute Lymphocyte Count 2.15 10^3/uL (1.2-3.4); Absolute Neutrophil Count 4.18 10^3/uL (1.2-6.7); Basophils % 0.7; Eosinophils % 2.7; HCT 39.2 % (36.0-46.0); HGB 12.6 g/dL (11.2-15.7); Immature Grans % 0.3; Lymphocytes % 29.5; MCH 28.6 pg (27.0-33.0); MCHC 32.1 % (32.0-36.0); MCV 89.1 fL (80-95); MPV 12.1 fL (8.0-11.0); Monocytes % 9.6; Neutrophils % 57.2; Nucleated RBC 0 %; Platelet Count 266 10^3/uL (130-400); RDW 13.2 % (11.7-14.6); RDW-SD 43.3 fL
[2020-12-06 11:25] LABS: Bilirubin Negative (Negative); Blood Negative (Negative); Clarity Clear (Clear); Glucose Negative (Negative); Ketones Negative (Negative); Leukocyte Esterase Negative (Negative); Nitrite Negative (Negative); Specific Gravity 1.015 (1.005-1.025); Urobilinogen 0.2 EU/dL (Up TO 0.2); pH 6.5 (5-8)
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
[2020-12-06 11:41] LABS: ALT 22 U/L (14-59); AST 14 U/L (15-37); Albumin 3.5 g/dL (3.4-5.0); Alkaline Phosphatase 120 U/L (46-116); Anion Gap 10.9 mmol/L (3-11); BUN 14 mg/dL (7-18); Bilirubin, Total 0.5 mg/dL (0.2-1.0); CO2 26.1 mmol/L (21.0-32.0); CREATININE 0.9 mg/dL (0.55-1.02); Calcium 9.6 mg/dL (8.5-10.1); Chloride 102 mmol/L (98-107); Glucose 100 mg/dL (74-106); Magnesium 1.6 mg/dL (1.8-2.4); Potassium 4.1 mmol/L (3.5-5.1); Sodium 139 mmol/L (136-145); Total Protein 7.3 g/dL (6.4-8.2); Troponin I < 0.05 ng/mL (<0.06)
[2020-12-06] MEDS: Normal Saline 500 ML IV (12:01)
[2020-12-06] MEDS: ACETAMINOPHEN 1,000 MG/100 ML BTL 400 MG IVPB (12:02)
[2020-12-06] MEDS: Normal Saline Flush 10 ML SYR IVP ×2 (12:04→17:39)
[2020-12-06] MEDS: Omnipaque 350 MG/ML 100 ML BTL IJ (12:53)
[2020-12-06] MEDS: Normal Saline - Diluent 50 ML VIAL IV (12:54)
[2020-12-06 14:19] LABS: Source Nasal/Nares
--- NOTE | 2020-12-06 14:30 | DI.MRI_ITS ---
EXAM: MR BRAIN WO CLINICAL HISTORY: tia TECHNIQUE: Multiplanar multisequence MRI of the brain was performed. COMPARISON: CT scan and CT angiogram earlier today reviewed FINDINGS: CEREBRAL PARENCHYMA: No evidence of intracranial hemorrhage, mass effect nor shift of midline structu re. No extraaxial fluid collections. Ventricles are not enlarged nor shifted. There is no significant focal signal abnormality in the cerebellar hemispheres nor within the rocio, m idbrain, and thalami. There are multiple foci of signal abnormality in the [place] and supraventricular white matter consisten t with chronic small vessel changes. These are not associated with hemorrhage or surrounding edema n or abnormal diffusion imaging sequence signal to suggest acute ischemic event. PITUITARY GLAND: No mass nor parasellar abnormality. No obvious abnormality in the cavernous sinuses. FLOW VOIDS: The expected flow void are noted. No evidence of obvious aneurysm nor obvious vascular ma lformation. PARANASAL SINUSES: The visualized paranasal sinuses appear unremarkable. No obvious finding ORBITS: No obvious findings. IMPRESSION: There are multiple foci of periventricular white matter signal abnormality consistent with chronic sm all vessel white matter ischemic changes. These are nonhemorrhagic and not associated with surroundi ng edema nor abnormal signal on diffusion imaging to suggest acute infarction. Findings are consiste nt with chronic small vessel ischemic changes. Report called by myself to the emergency room provider following completion of the study today. DATA REPOSITORY:
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
--- NOTE | 2020-12-06 14:43 | DI.US_ITS ---
APPROVED REPORT EXAM: Comprehensive 2D, Doppler, and color-flow Echocardiogram Patient Location: In-Patient Room/Bed: ER Anatomy And Physiology Instructor: Madiha Mcgovern RDCS (AE) Indications: TIA Other Information Study Quality: Adequate Conclusion Left Ventricle : The left ventricle is normal size. The left ventricular systolic function is normal. The left ventricular ejection fraction is within the normal range. There is normal left ventricular wall thickness. There is normal LV segmental wall motion. The left ventricular diastolic function is normal. LVEF is 58%. Right Ventricle : The right ventricle is normal size. The right ventricular systolic function is norm al. The RVSP is 41.2 mmHg. Atria : The left atrium size is normal. The right atrium size is normal. Mitral Valve : Mild mitral annular calcification. Mild mitral regurgitation. No evidence of mitral va lve stenosis. Great Vessels : The aortic root is normal in size. The ascending aorta is normal in size. Aortic arch is normal in caliber. IVC is normal in size and collapses >50% with inspiration. Please see remainder of study for further details. Wall motion Left Ventricle The left ventricle is normal size. The left ventricular systolic function is normal. The left ventric ular ejection fraction is within the normal range. There is normal left ventricular wall thickness. T here is normal LV segmental wall motion. The left ventricular diastolic function is normal. There is no ventricular septal defect visualized. LVEF is 58%. Right Ventricle The right ventricle is normal size. The right ventricular systolic function is normal. The RVSP is 41 .2 mmHg. Atria The left atrium size is normal. The right atrium size is normal. The interatrial septum is intact wit h no evidence for an atrial septal defect. Aortic Valve The aortic valve is normal in structure. Aortic valve is trileaflet. There is no aortic valvular sten osis. No aortic regurgitation is present. Mitral Valve Mild mitral annular calcification. No evidence of mitral valve stenosis. Mild mitral regurgitation. Tricuspid Valve The tricuspid valve is normal in structure. There is no tricuspid valve stenosis. Mild tricuspid regu rgitation. Pulmonic Valve The pulmonary valve is normal in structure. There is no pulmonic valvular stenosis. Trivial pulmonic regurgitation. Great Vessels The aortic root is normal in size. The ascending aorta is normal in size. Aortic arch is normal in ca liber. IVC is normal in size and collapses >50% with inspiration. Pericardium Trace pericardial effusion. 2D Dimensions IVSD d PLAX 1.03 cm F: 0.6-1.0 LV Vol A2C d MOD 99.4 mL LVPW d PLAX 1.02 cm F: 0.6 - 1.0 LV Vol A4C d MOD 107.2 mL LVID d PLAX 4.70 cm F: 3.8 - 5.2 LA vol/ BSA A2C s A-L 31.5 mL/m2 LVDs 3.10 cm F: 2.2 - 3.5 LA vol/ BSA A4C s A-L 36.8 mL/m2 Ao Root d 2.37 cm F: 2.7 - 3.3 LA Vol/ BSA Biplane s A-L 34.4 mL/m2 RA Area A4C 15.16 cm2 LA Area A4C s MOD 22.74 cm2 RA Vol/ BSA A4C s A-L 19.9 mL/m2 LA Area A2C s MOD 20.79 cm2 Ao Asc Diam d 3.10 cm F: 2.3 - 3.1 LV EF A4C MOD 58.5 % LV EF Teichholz 62.3 % LV EF A2C MOD 57.7 % LVEF (Hutchinson's) 57.84 % F: 54 - 74 LV EF Biplane MOD 57.8 % LV Volume 78.59 mL F: 46 - 106 SV 60.29 mL LV Volume Index 39.89 mL/m2 F: 29 - 61 SV Index 30.63 mL/m2 LV Vol Biplane MOD 104.2 mL FS 33.55 % M-Mode TAPSE 1.96 cm (M/F) >1.7 LV Diastology MV E' medial 0.073 (>0.07 m/s) E/A Ratio 1.2 LV E/e MED 14.00 (<14) MV E Vmax 1.03 (0.4-1.3 m/s) MV E' lateral 0.134 (>0.1 m/s) MV A Vmax 0.85 (0.4-1.3 m/s) LV E/e LAT 7.65 (<14) MV E/A Ratio 1.17 MV E/E' medial 14.04 MV E/E' lateral 7.69 Aortic Valve LVOT Area 2.62 cm2 AoV Area Vmax 1.72 cm2 LVOT Vmax 1.06 m/s AoV Area/ BSA (Vmax) 0.87 cm2/m2 LVOT Mean Florentin. 0.72 m/s MENA Mean Florentin. 1.68 cm2 LVOT Peak Grad 4.5 mmHg MENA Mean Florentin. Index 0.85 cm2/m2 LVOT Mean Grad 2.4 mmHg LVOT VTI 0.269 m LVOT Diam s 1.80 cm AoV Vmax 1.61 m/s Velocity Ratio 0.65 AoV Mean Florentin. 1.13 m/s AoV Peak Grad 10.4 mmHg LVOT SV 70.49 mL AoV Mean Grad 5.6 mmHg AoV VTI 0.425 m AoV Area VTI 1.66 cm2 AoV Area/ BSA (VTI) 0.84 cm/m2 Mitral Valve MV DT 163 (160-240 msec) MR Vmax 5.33 m/s MV PHT 47 msec MR VTI 2.040 m MV Area PHT 4.65 cm2 MR Peak Grad 113.6 mmHg MV VTI 0.340 m MR Mean Grad 85.4 mmHg MV VTI Annulus 0.365 m MR PISA Radius 0.72 cm MV Area VTI 2.24 (4.0-6.0 cm2) MR EROA 0.21 cm2 MR Aliasing Velocity 0.35 m/s MR PISA 3.25 cm2 Pulmonary Valve PV Vmax 0.88 (0.5-1.5 m/s) RVOT Peak Gr. 3.45 mmHg PV Peak Grad 3.1 mmHg RVOT Mean Gr. 1.70 mmHg PV Mean Grad 1.9 mmHg RVOT VTI 0.243 m PV VTI 0.224 m RVOT Vmax 0.93 m/s Tricuspid Valve TR Peak Grad 38.1 mmHg TR Vmax 3.09 m/s RA Pressure 3.00 mmHg RVSP (TR) 41.2 mmHg
--- NOTE | 2020-12-06 14:45 | DI.MRI_ITS ---
EXAM: MR ANGIO BRAIN WO INDICATION: speech change. COMPARISON: MR MR BRAIN WO from 12/06/2020 TECHNIQUE: MR angiography of the [id number] region was performed utilizing 3D [id number] i maging. FINDINGS: The visualized internal carotid arteries appear intact, no aneurysm, stenosis, or dissection. Visualized vertebral arteries appear intact, no aneurysm, stenosis or dissection. Basilar artery appears normal, no aneurysm, stenosis, or dissection. The anterior cerebral arteries and major branch vessels appear intact. No aneurysm, stenosis, or dis section. The middle cerebral arteries and major branch vessels appear intact. No aneurysm, stenosis, or disse ction. The posterior cerebral arteries and major branch vessels appear intact. No aneurysm, stenosis, or di ssection. IMPRESSION: Negative MR angiography, [id number] region.
--- NOTE | 2020-12-06 15:37 | NUR.NOTE ---
pt states she had her morning meds today but nothing for headache Nursing Note:
--- NOTE | 2020-12-06 16:46 | NCONE_ITS ---
Date of service: 12/06/20 Time of Service: 16:47 Assessment and Plan Assessment and plan (1) TIA (transient ischemic attack): Status: Acute Assessment and plan: Ms. Tolentino is a 75 year-old, right-handed woman with 2 episodes of transient expressive aphasia. Symptoms are most consistent with TIA. She does have as associated mild left temporal headache, but I still think this is TIA. Risk factors include hyperlipidemia and ?hypertension. Work-up: -TTE with bubble study - results pending; if normal, would proceed with outpatient 30 day nurse monitoring -Telemetry -A1c -Lipid panel -ESR given new left temporal headache, concern for GCA Medications: -aspirin 81mg daily for secondary stroke prevention -clopidogrel 300mg load and then 75mg daily for secondary stroke prevention - continue this for 21-30 days only -atrovastatin 80mg daily for secondary stroke prevention - adjust dose at d/c for goal LDL <70 Other: -Allow permissive hypertension -Continue Sinemet 25/100mg TID for Parkinsons -continue gabapentin 300mg TID for ?RLS She should follow-up in the neurology clinic in 4-6 weeks. She also expressed desire to transfer her Parkinsons care locally and I would be happy to take over that care as well. History of Present Illness History of Present Illness Chief Complaint: aphasia Narrative: Handedness: right. HPI: Ms. Tolentino is a 75 year-old woman with Parkinsons (followed at [facility]), RLS, breast cancer, hypothyroidism, GERD, remote migraines, and depression. Her chart indicates a history of vitamin B12 deficiency and hypertension. Review of old lab levels old reveals a history of hyperlipidemia. Ms. Tolentino presented to the ER this am after 2 episodes about 24 hours apart of transient speech changes. The first episode occurred yesterday. She was awakend out of a deep sleep by the phone ringing. She describes 10-15min of difficulty getting her words out. The same occurred this am (though not associated with sleep). She has no associated with numbness, tingling, or weakness. She has no chest pain or palpitations. Since the first episode she has had a low grade left temporal headache. She has a remote history of severe migraines. In the last 2 decades she has had very rare headaches, so this is unusual for her. In the ER, her BP was 171/64. She is not on hypertensives. EKG was NSR. She has since undergone further work-up below. She has been given aspirin + clopidogrel 300mg loading dose. She has never been on a statin before. Work-up: -CTH: no acute findings. Mild diffuse small vessel disease changes. ?left centrum semiovale hypodensity of indeterminate age. I reviewed these images personally and this is my personal interpretation. -CTA head/neck: mild L ICA atherosclerosis with no significant stenosis. I reviewed these images personally and this is my personal interpretation. -MRI brain w/o: no acute findings. Mild-moderate chronic small vessel disease changes. I reviewed these images personally and this is my personal interpretation. -TTE: pending Consults Requesting physician: Bj Vu Review of Systems All systems reviewed & are unremarkable except as noted in HPI and below [facility] Medical History (Updated 12/06/20 @ 18:02 by Bj Vu) Anxiety (09/21/17) Chronic pain due to injury (02/13/16) Depressive disorder Elevated fasting glucose Essential hypertension (09/12/13) Excessive cerumen in right ear canal Gastroesophageal reflux disease with esophagitis 06/15 EGD: GASTRITIS, GASTRIC POLYP, HIATAL HERNIA Hypothyroidism (09/27/08) Insomnia (08/13/16) Invasive ductal carcinoma of left breast (06/23/19) pT1c, pN0(sn), ER+/[place]J+, HER2/MARTIN 1+/NEG Low back pain of multiple sites of spine with sciatica (10/06/13) Lumbago (10/06/13) Parkinson's disease Right ear pain Vitamin B12 deficiency (04/25/14) Wrist pain, right (06/29/17) Surgical History (Updated 12/06/20 @ 17:59 by Bj Vu) Biopsy of breast H/O colonoscopy (06/15/09) History of esophagogastroduodenoscopy (06/15/09) Hysterectomy, Laproscopic S/P lumpectomy, left breast (06/23/19) s/p left breast lumpectomy and left axillary sentinel node biopsy; (Dr. Liya Hernandez, [facility], [place], [place]) Status post total right knee replacement (04/07/18) Dr. Ac [facility] 02/17/18 Family History Mother , 7 Stroke Parkinson's disease Asthma Heart disease Father , 71 Stroke Polio Sister , 64 Diabetes Stroke Parkinson's disease Brother Heart disease Brother Heart disease S/P CABG Maternal Grandfather , PNEUMONIA at age 36. No problems noted. Paternal Grandfather No problems noted. Maternal Grandmother Heart disease Paternal Grandmother No problems noted. Sister Alzheimer's disease Sister Dementia Son , 58 No problems noted. Daughter Depression Daughter No problems noted. Daughter MS (multiple sclerosis) Social History Smoking/Tobacco Use Status: Never Second Hand Exposure: Yes Smoking risk assessment performed?: Yes Alcohol Intake: current Alcohol Intake frequency: holidays/special occasions only Alcohol type: beer Drug use: Never Substance use type: does not use Counseling given: No Counseling provided: none Household members: none Do you need help understanding health information?: Often Pets and animals: Yes Pets and animals: cat(s) Sexually active: No Do you think of yourself as: straight/heterosexual Current gender identity: female What is your relationship status?: refused to answer How often do you talk on the phone with friends or family?: twice per week How often do you get together with friends or relatives?: once per week How often do you attend zoroastrianism or restorationist services?: 4 or more times per year Do you belong to any clubs or organized social groups?: no Panel score (0-1 are the most socially isolated patients): 2 What type of physical activity do you participate in: none Dawn/Baptism: Faith Special dawn needs: No Seatbelt use: always Helmet use: No Drive intox or ride w/intox 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 Both are now . [place] ([employer]) Visit Medication and Allergies Active Medications Generic Name Dose Route Start Last Admin Trade Name Freq PRN Reason Stop Dose Admin Acetaminophen 0 mg 12/06/20 14:41 Acetaminophen 325 Mg Tab PO Q4H PRN PRN Al Hydrox/Mg Hydrox/Simethicone 30 ml 12/06/20 14:41 Mylanta Suspension 30 Ml Cup PO Q2H PRN PRN Aspirin 162 mg 12/07/20 08:30 Aspirin 81 Mg Chew PO DAILY [facility] Aspirin 81 mg 12/07/20 08:30 Aspirin E.C. 81 Mg Tabec PO DAILY [facility] Atorvastatin Calcium 80 mg 12/06/20 20:00 Atorvastatin 40 Mg Tab PO QPM [facility] Clopidogrel Bisulfate 75 mg 12/07/20 08:30 Clopidogrel 75 Mg Tab PO DAILY [facility] Dimethicone/Zinc Oxide 0 gm 12/06/20 14:41 Manjit Protect Cream 142 Gm Tube TP PRN PRN Docusate Sodium 100 mg 12/06/20 14:41 Docusate Sodium 100 Mg Cap PO TID PRN PRN Enoxaparin Sodium 40 mg 12/06/20 16:00 Enoxaparin 40 Mg/0.4 Ml Syr SC Q24H [facility] Sodium Chloride 1,000 mls @ 75 mls/hr 12/06/20 14:45 Saline 1000ml Bag IV 12/07/20 04:04 INFUSION [facility] IV Miscellaneous Supplies 1 each 12/06/20 11:15 Iv Access IV DIRECTED NEFTALY Iohexol 100 ml 12/06/20 13:00 12/06/20 12:53 Omnipaque 350 Mg/Ml 100 Ml Btl IJ 01/05/21 23:59 85 ml DIRECTED [facility] Administration Magnesium Hydroxide 30 ml 12/06/20 14:41 Milk Of Magnesia 30 Ml Cup PO DAILY PRN PRN Polyethylene Glycol 17 gm 12/06/20 14:41 Polyethylene Glycol 3350 17 Gm Packet PO DAILY PRN PRN Constipation Sodium Chloride 0 ml 12/06/20 11:01 12/06/20 12:04 Normal Saline Flush 10 Ml Syr IVP 10 ml PRN PRN Administration Sodium Chloride 50 ml 12/06/20 13:00 12/06/20 12:54 Normal Saline - Diluent 50 Ml Vial IV 50 ml .FOR DI USE NEFTALY Administration Allergies mold Allergy (Intermediate, Verified 12/06/20 11:02) SOB lactose Adverse Reaction (Severe, Verified 12/06/20 11:02) Intolerant pentazocine lactate [From [place]] Adverse Reaction (Severe, Verified 12/06/20 11:02) Psychosis codeine Adverse Reaction (Intermediate, Verified 12/06/20 11:02) Nausea honey dew melon Allergy (Severe, Uncoded 12/06/20 11:02) Anaphylaxsis Exam Narrative Exam Narrative: Physical Exam: Gen: Patient of apparent stated age, NAD Head and face: no facial or cranial abnormalities Neck: Supple, no meningismus, no occipital tenderness CV: RRR, no murmur Resp: CTA B/L Abd: soft, nontender, nondistended Ext: No edema. No clubbing or cyanosis. No bony deformity. Neuro Exam: Language: fluency, naming, repetition, and comprehension intact; Mental Status: AAOx3, current events intact, fund of knowledge intact; Speech: no dysarthria Cranial nerves: Funduscopy: not performed CN II: visual hardwick intact CN III, IV, : extraocular movements intact, no nystagmus, pupils symmetric and reactive to light CN V: reduced PP to left face CN VII: no facial asymmetry noted CN VIII: hearing intact bilaterally CN IX, X: palate rises symmetrically CN XI: trapezius/SCM 5/5 bilaterally CN XII: protrudes tongue symmetrically Sensory: reduced PP in left arm; Motor: bulk and tone intact. No obvious cogwheel rigidity. Fine motor movements mildly reduced bilaterally. No pronator drift. Strength 5/5 throughout. Reflexes: 2+ at the biceps, triceps, brachioradialis, patella, and achilles tendons bilaterally; toes down going bilaterally; Coordination: FTN intact bilaterally Gait: not performed Results Last Vital Signs Temp 36.5 C 12/06/20 15:20 Pulse 63 12/06/20 15:20 Resp 18 12/06/20 15:20 BP 162/71 H 12/06/20 15:20 Pulse Ox 99 12/06/20 15:20 Labs Result diagrams: 12/06/20 10:28 12/06/20 10:28 Labs: Laboratory Results - last 24 hr 12/06/20 12/06/20 12/06/20 10:28 10:28 11:15 WBC 7.30 RBC 4.40 Hgb 12.6 Hct 39.2 MCV 89.1 MCH 28.6 MCHC 32.1 RDW 13.2 Plt Count 266 MPV 12.1 H Immature Gran % 0.3 Neutrophils % 57.2 Lymphocytes % 29.5 Monocytes % 9.6 Eosinophils % 2.7 Basophils % 0.7 Nucleated RBC % 0 Absolute Neutrophils 4.18 Absolute Lymphocytes 2.15 Absolute Monocytes 0.70 Absolute Eosinophils 0.20 Absolute Basophils 0.05 Sodium 139 Potassium 4.1 Chloride 102 Carbon Dioxide 26.1 Anion Gap 10.9 BUN 14 Creatinine 0.9 Estimated GFR/1.73 m2 >= 60.00 Glucose 100 Calcium 9.6 Magnesium 1.6 L Total Bilirubin 0.5 AST 14 L ALT 22 Alkaline Phosphatase 120 H Troponin I < 0.05 Total Protein 7.3 Albumin 3.5 Urine Color Yellow Urine Clarity Clear Urine pH 6.5 Ur Specific [place] 1.015 Urine Protein Negative Urine Ketones Negative Urine Blood Negative Urine Nitrite Negative Urine Bilirubin Negative Urine Urobilinogen 0.2 Ur Leukocyte Esterase Negative Urine Glucose Negative COVID-19 Source 12/06/20 14:10 WBC RBC Hgb Hct MCV MCH MCHC RDW Plt Count MPV Immature Gran % Neutrophils % Lymphocytes % Monocytes % Eosinophils % Basophils % Nucleated RBC % Absolute Neutrophils Absolute Lymphocytes Absolute Monocytes Absolute Eosinophils Absolute Basophils Sodium Potassium Chloride Carbon Dioxide Anion Gap BUN Creatinine Estimated GFR/1.73 m2 Glucose Calcium Magnesium Total Bilirubin AST ALT Alkaline Phosphatase Troponin I Total Protein Albumin Urine Color Urine Clarity Urine pH Ur Specific [place] Urine Protein Urine Ketones Urine Blood Urine Nitrite Urine Bilirubin Urine Urobilinogen Ur Leukocyte Esterase Urine Glucose COVID-19 Source Nasal/nares
--- NOTE | 2020-12-06 16:48 | DI.VRAD_ITS ---
PROCEDURE INFORMATION: Exam: MR Angiogram Head Without Contrast, Arteries Exam date and time: 12/06/2020 4:23 PM Age: 75 years old Clinical indication: Other: TIA TECHNIQUE: Imaging protocol: MR angiogram head without contrast. Exam focused on the arteries. COMPARISON: CT BRAIN NECK CTA 12/06/2020 12:38 PM FINDINGS: The visualized bilateral internal carotid arteries, middle cerebral arteries, and anterior cerebral arteries are widely patent throughout their courses. The visualized bilateral vertebral arteries, the basilar artery, and bilateral posterior cerebral arteries are widely patent throughout their courses. There is no evidence of aneurysm, occlusion, significant stenosis, or dissection. There is evidence of at least mild cerebral volume loss. Otherwise limited evaluation of the intracranial contents is unremarkable. Limited evaluation of the soft tissues unremarkable. Grossly unremarkable globes and orbits. Likely mucosal thickening left ethmoid air cells impression: Widely patent major arterial vasculature of the head. Dictated and Authenticated by: Dmitry Arnett MD. Ordering:OZIEL Carmichael MD
[2020-12-06 17:00] LABS: ESR 32 mm//hr (0-30)
[2020-12-06] MEDS: Clopidogrel 300 MG TAB PO (17:39)
[2020-12-06] MEDS: Enoxaparin 40 MG/0.4 ML SYR SC (17:39)
[2020-12-06] MEDS: Aspirin 81 MG CHEW 324 MG CH (17:40)
[2020-12-06 17:50] LABS: Troponin I < 0.05 ng/mL (<0.06)
[2020-12-06] MEDS: Normal Saline 1,000 ML 75 ML IV (19:25)
[2020-12-06] MEDS: Gabapentin 300 MG CAP PO (19:47)
[2020-12-06] MEDS: Atorvastatin 40 MG TAB 80 MG PO (19:47)
[2020-12-06] MEDS: Carbidopa 50/Levodopa 200 CR TABCR 1 TAB PO (19:47)
[2020-12-06 22:54] LABS: COVID-19 PCR Negative (Negative)
[2020-12-07] VITALS (7 sets, daily range): BP systolic 137–160; BP diastolic 65–86; PULSE 57–73; RESP 17–20; TEMP 36.5–36.9; O2SAT 96–98
[2020-12-07] MEDS: Levothyroxine 100 MCG TAB PO (05:29)
[2020-12-07 07:36] LABS: Calculated LDL 119 mg/dL (<100); Cholesterol 180 mg/dL (<200); HDL Cholesterol 46 mg/dL (40-60); TSH (W/Ref FT4) 1.84 uIU/mL (0.36-3.74); Triglyceride 79 mg/dL (<150)
[2020-12-07 07:53] LABS: Hemoglobin A1C 5.5 % (<5.7)
[2020-12-07] MEDS: Cholecalciferol (Vitamin D3) 1,000 UNIT TAB 1000 UNITS PO (09:11)
[2020-12-07] MEDS: Gabapentin 300 MG CAP PO ×2 (09:11→13:36)
[2020-12-07] MEDS: Letrozole 2.5 MG TAB PO (09:12)
[2020-12-07] MEDS: Aspirin E.C. 81 MG TABEC PO (09:13)
[2020-12-07] MEDS: Clopidogrel 75 MG TAB PO (09:13)
[2020-12-07] MEDS: Carbidopa 50/Levodopa 200 CR TABCR 1 TAB PO ×2 (09:14→13:37)
[2020-12-07] MEDS: Omeprazole 20 MG CAPCR 40 MG PO (09:14)
[2020-12-07] MEDS: Escitalopram 10 MG TAB PO (09:14)
--- NOTE | 2020-12-07 09:59 | PT.INIE ---
Date of service: 12/07/20 Time of Service: 09:59 PT Notes Visit Reasons: TIA (cardiology) Physical Therapy Inpatient Initial Evaluation Date: 12/07/2020 Referring Doctor: Bj Vu MD PT Orders: PT CONSULT: D/C Non PT Dependent. Evaluate for safe dc: Patient w/ TIA Precautions: Fall. Standard. Activity as tolerated. Patient Profile/Admitting Diagnosis: Daja is a 75-year-old female who presented to the ED on 12/06/2020 with 2 episodes of word finding difficulty and repetitive speech. Patient was diagnosed with Julito TIA with referral for PT for discharge assessment. PMHX: Medical History (Updated 12/06/20 @ 18:02 by Bj Vu) Anxiety (09/21/17) Chronic pain due to injury (02/13/16) Depressive disorder Elevated fasting glucose Essential hypertension (09/12/13) Excessive cerumen in right ear canal Gastroesophageal reflux disease with esophagitis 06/15 EGD: GASTRITIS, GASTRIC POLYP, HIATAL HERNIA Hypothyroidism (09/27/08) Insomnia (08/13/16) 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 Liya Hernandez, [facility], [place], [place]) Status post total right knee replacement (04/07/18) Dr. Ac [facility] [place] [facility] 02/17/18 Social History/Home Situation: Lives alone at the [address] with no steps to enter. Independent with all mobility ADL performance. No AD needed. Received assistance with grocery shopping prior to admission. Equipment Owned/DME: None Subjective: Reports discomfort on the inner side of her knees with ambulation activity. States that she has arch collapse that has bothered her knees for quite a while now. Receptive to recommendation of getting orthopedic shoes. Denies headache, chest pain, and dizziness throughout session. Objective: General Observation: Supine in bed. Telemetry monitoring in place. IV access in left brachium. Mental Status: Alert and oriented x4. Pain: 2?3/10 pain in inner medial side of knees with ambulation, resolved with rest. ROM: Right Upper Extremity: Shoulder Flexion WFL. Shoulder abduction WFL. Elbow flexion WFL. Wrist flexion WFL. Opening and closing of hand WFL. Left Upper Extremity: Shoulder Flexion WFL. Shoulder abduction WFL. Elbow flexion WFL. Wrist flexion WFL. Opening and closing of hand WFL. Right Lower Extremity: Hip flexion WFL. Hip abduction WFL. Knee flexion WFL. Ankle dorsiflexion WFL. Ankle plantarflexion WFL. Left Lower Extremity: Hip flexion WFL. Hip abduction WFL. Knee flexion WFL. Ankle dorsiflexion WFL. Ankle plantarflexion WFL. Strength: Right Upper Extremity: Shoulder flexors 5/5. Shoulder abductors 5/5. Elbow flexors 5/5. Elbow extensors 5/5. Precinct Captain strong. Left Upper Extremity: Shoulder flexors 5/5. Shoulder abductors 5/5. Elbow flexors 5/5. Elbow extensors 5/5. Precinct Captain strong. Right Lower Extremity: Hip flexors 4/5. Hip abductors 4/5. Knee flexors 4/5. Knee extensors 4/5. Ankle dorsiflexors 4/5. Ankle plantarflexors 4/5. Left Lower Extremity:Hip flexors 4/5. Hip abductors 4/5. Knee flexors 4/5. Knee extensors 4/5. Ankle dorsiflexors 4/5. Ankle plantarflexors 4/5. Sensation: Intact as to pain and pressure on bilateral lower extremities. Bed Mobility/Transfers: Rolling independent Supine to sit independent Sit to supine independent Sit to stand independent Stand to sit independent Bed to chair independent Chair to bed independent Gait: Supervision with all level surface ambulation of 230 feet without an assistive device. 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 Gait pattern unremarkable. THERA ACT: Instruction and training provided for HEP consisting of sit to stand x10, bilateral heel raises x10, and partial knee bends x10. Balance: Static Sitting: Normal Dynamic Sitting: Normal Static Standing: Good Dynamic Standing: Good Special Tests: Mobility Limitations Standardized Measure [facility] AM-PAC 6 clicks Basic Mobility Inpatient Short Form: Raw Score: 24 CMS Score: 0% deficit 4-stage balance test: Able to maintain 10 seconds with position 1/feet together and with position to/semi tandem. Unable to maintain 10 seconds with full tandem and 1 legged stance. Informed Consent/Education: Patient instructed in purpose of PT consult and plan of care. Assessment: Strength symmetric. No facial droop seen. No slurring of speech detected. Speech comprehension normal. Minimal impairment in balance noted but does not warrant use of AD at this time. May benefit from use of orthopedic shoes to minimize bilateral knee pain. May benefit from orthotic consult for orthopedic shoes. Patient presents with clinical signs and symptoms consistent with current/admitting diagnoses that have resulted to mobility limitations, gait instability, generalized weakness, and impairment of motor control as demonstrated by the following impairment level findings: 1. Impaired dynamic standing balance Impairments are contributing to the following functional limitations: 1. Increased fall risk Patient is assessed as a 30005 low complexity based on the following: History: 75-year-old female with impairment level findings, functional limitations, and past medical history as indicated above Examination: Demonstrable impairment balance and mobility level with underlying impairments and functional limitations as documented above Presentation:Evolving Decision Makin low complexity Goals: N/A. PT evaluation only and patient education and 1 treatment session for training on HEP and mobility ADL performance using no assistive device. Plan of Care/Treatment Plan: N/A. PT evaluation only and patient education and 1 treatment session for training on HEP and mobility ADL performance using no assistive device. DISCHARGE RECOMMENDATIONS: Home when medically cleared by hospitalist. No equipment needs at this time. No skilled services needed at this time. May benefit from orthotic consult for orthopedic shoes. TREATMENT CODE/TIME: 70233 x 20 minutes, 23300 x 13 minutes beginning at 9:59 AM. Thank you for the opportunity to participate in the care of this patient. Ramila Torres PT, DPT, CLT [facility], [place]
--- NOTE | 2020-12-07 13:19 | PDOC.CMIN ---
- If Service Date Differs Date of service: 12/07/20 Time of Service: 13:19 Care Management Initial Assess REASON FOR HOSPITALIZATION:: TIA PAST MEDICAL HISTORY/PAST SURGICAL HISTORY:: Medical History (Updated 12/06/20 @ 18:02 by Bj Vu). Anxiety (09/21/17). Chronic pain due to injury (02/13/16). Depressive disorder. Elevated fasting glucose. Essential hypertension (09/12/13). Excessive cerumen in right ear canal. Gastroesophageal reflux disease with esophagitis. 06/15 EGD: GASTRITIS, GASTRIC POLYP, HIATAL HERNIA. Hypothyroidism (09/27/08). Insomnia (08/13/16). Invasive ductal carcinoma of left breast (06/23/19). pT1c, pN0(sn), ER+/AK+, HER2/MARTIN 1+/NEG. Low back pain of multiple sites of spine with sciatica (10/06/13). Lumbago (10/06/13). Parkinson's disease. Right ear pain. Vitamin B12 deficiency (04/25/14). Wrist pain, right (06/29/17). Surgical History (Updated 12/06/20 @ 17:59 by Bj Vu). Biopsy of breast. H/O colonoscopy (06/15/09). History of esophagogastroduodenoscopy (06/15/09). Hysterectomy, Laproscopic. S/P lumpectomy, left breast (06/23/19). s/p left breast lumpectomy and left axillary sentinel node biopsy; (Dr. Liya Hernandez, [facility], [place], [place]). Status post total right knee replacement (04/07/18). Dr. Ac [facility] 02/17/18 PREVIOUS FUNCTIONAL STATUS/SOCIAL/FAMILY SUPPORTS:: Daja lives at the [facility] in [facility] with her cat. Her daughter is very supportive and lives in [place]. Daja's manager case management in the community is Lucretia Keen ANKUR, and she also receives support from AMADOU Brito. She does not drive but is otherwise independent at baseline. CURRENT FUNCTIONAL STATUS:: Daja was sitting up in bed when CM met with her. She reported that she was feeling much better today, and is hoping to return home this afternoon. She reported that she has some assistance that Lucretia has set up for her recently to go get groceries and help her with housecleaning. She expressed the need for a ride home, which CM will assist with. CM will ask [facility] if they can stop at the pharmacy for her new prescriptions as well. CM reached out to Del Begum, who will provide a meal for her today, and will follow up with MOW in the community. CM will continue to follow. ADVANCE DIRECTIVES:: On file, Codi (daughter) listed as agent. Has patient been provided with info about the portal/API?: Yes Did the patient sign up for the portal?: No CODE STATUS:: Full Code INSURANCE COVERAGE / FINANCIAL ISSUES:: [facility]/ [facility] CURRENT HOME/COMMUNITY SERVICES/EQUIPMENT:: [facility] case management, Lucretia Keen; Del Begum, [facility]. PRIMARY CARE PHYSICIAN:: Candie Guy POTENTIAL DISCHARGE NEEDS:: Community supports, follow up with Neuro & PCP PATIENT/FAMILY EDUCATION NEEDS:: Review discharge instructions regarding activity levels and medications, discussion of self care needs and goals of care. ANTICIPATED BARRIERS TO DISCHARGE:: None identified. TRANSPORTATION:: Via [facility] private vehicle, coordinated by [employer]. PLAN:: Anticipate Daja will return home once medically cleared. She will be driven home via [facility] private vehicle, coordinated by [employer]. She will follow up with her PCP, Neuro, and her discharge plan of care. CM will communicate with her community supports to assist with MOW and other supports. CM will continue to follow.
--- NOTE | 2020-12-07 14:01 | CHAPLAIN ---
Daja was resting in bed when I visited. She was very pleasant and easily engaged in a conversation. She said she may be in need of a ride home, to [address], and I told her I would pass that information on to Care Management. Daja identified Del Begum, from [facility], as a support. She is also in touch with her daughter who works for home health in [place]. Daja talked about her grandchildren and caring for her granddaughter's hedgehogs when her granddaughter is away.
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
--- NOTE | 2020-12-31 14:29 | W.CARDEVENT ---
Date of service: 12/31/20 Time of Service: 14:29 Cardiac Event Recorder Referring Provider:: Brooks Indications:: TIA Cardiac Event Note: This is a 30-day monitor ordered for the indication of TIA. ?A total of 1 day and 18 hours were recorded during this 17-day period. ?The patient was in normal sinus rhythm for the majority of the recording with an average heart rate of 68 bpm. ?There were no serious events that occurred nor any patient triggered events. ?There were no episodes of atrial fibrillation, no pauses greater than 3 seconds and no evidence of high degree heart block.
== END 2020-12-07 15:56 | disposition home or self-care (01) ==
LOC: ER 14:57 → MS 16:37
PROVIDERS: Admitting Provider Internal Medicine; Emergency Provider Physician Assistant; Visit Provider Internal Medicine
DX: G45.9 Transient cerebral ischemic attack, unspecified (principal); R47.01 Aphasia; G20 Parkinson's disease; Z85.3 Personal history of malignant neoplasm of breast; I10 Essential (primary) hypertension; F32.9 Major depressive disorder, single episode, unspecified; K21.9 Gastro-esophageal reflux disease without esophagitis; M54.5 Low back pain; G47.00 Insomnia, unspecified; G89.29 Other chronic pain
CPT/HCPCS: 36415; 36416; 70496; 70498; 70544; 80053; 80061; 82962; 85652; 87635; 93005; 93270; 93306; 96361; 96374; 97162; 97530; 99215; 99220; 99223; 99239; 99285; J1650; 70551; 71046; 81003; 83036; 83735; 84443; 84484; 85025; 93010; 99217; G0378; J0131; J3490

== ENCOUNTER 2020-12-31 14:29 | Outpatient (CLI) | payer MEDICARE, MEDICAID, SELFPAY | END 2020-12-31 14:30 | LOC: CARDO 01-01 09:04 | PROVIDERS: Visit Provider Internal Medicine Cardiovascular Disease | DX: G45.9 Transient cerebral ischemic attack, unspecified (principal) | CPT/HCPCS: 93272 ==

== ENCOUNTER → 2021-01-22 13:04 | Outpatient (BNVA) | payer MEDICARE, MEDICAID, SELFPAY | PROVIDERS: Visit Provider Psychiatry & Neurology Neurology | DX: G45.9 Transient cerebral ischemic attack, unspecified (principal); G20 Parkinson's disease; R26.89 Other abnormalities of gait and mobility | CPT/HCPCS: 99215 ==

== ENCOUNTER → 2021-02-19 13:10 | Outpatient (BNVA) | payer MEDICARE, MEDICAID, SELFPAY | PROVIDERS: Visit Provider Psychiatry & Neurology Neurology | DX: G45.9 Transient cerebral ischemic attack, unspecified (principal); R26.89 Other abnormalities of gait and mobility; G25.81 Restless legs syndrome | CPT/HCPCS: 99214 ==

== ENCOUNTER 2021-02-27 02:11 | Outpatient (CLI) | payer MEDICARE, MEDICAID, SELFPAY ==
[2021-02-27 11:33] LABS: Ferritin 28 ng/mL (8-252)
== END 2021-02-27 02:12 | disposition home or self-care (01) ==
LOC: LBO 02:12
PROVIDERS: Visit Provider Psychiatry & Neurology Neurology
DX: E61.1 Iron deficiency (principal)
CPT/HCPCS: 36415; 82728

== ENCOUNTER → 2021-05-07 12:49 | Outpatient (BNVA) | payer MEDICARE, MEDICAID, SELFPAY | PROVIDERS: Visit Provider Psychiatry & Neurology Neurology | DX: G45.9 Transient cerebral ischemic attack, unspecified (principal); E61.1 Iron deficiency; G25.81 Restless legs syndrome | CPT/HCPCS: 99213 ==

== ENCOUNTER 2021-05-15 12:12 | Inpatient (IN) | payer MEDICARE, MEDICAID, SELFPAY ==
[2021-05-15] VITALS (37 sets, daily range): BP systolic 139–181; BP diastolic 44–134; PULSE 69–98; RESP 9–23; TEMP 36.6–38.8; O2SAT 92–99
--- NOTE | 2021-05-15 12:15 | RT.EKG_ITS ---
APPROVED REPORT Exam: Resting ECG Reason for Exam: altered mental status Patient Location: E HR:89 bpm ECG Measurements Heart Rate 89 AXIS WV 78 P 49 QRSd 89 QRS -17 QT 390 T 24 QTc 453 Conclusion Sinus rhythm...normal P axis, V-rate 60- 99 Paired ventricular premature complexes...sequence of 2 V complexes sinus rhythm at 89, normal axis, paired PVCs, significant artifact V3, no STEMI, nondiagnostic EKG
--- NOTE | 2021-05-15 12:30 | DI.CT_ITS ---
Exam(s) CT HEAD WO EXAM: CT HEAD WO CLINICAL HISTORY: AMS. TECHNIQUE: Imaging Protocol: Axial computed tomography images with coronal and sagittal reformatted images were created and reviewed COMPARISON: CT CT BRAIN NECK CTA from 12/06/2020 FINDINGS: There are no skull fractures nor fluid in the visualized paranasal sinuses. There is no evidence of intracranial hemorrhage, mass effect, or shift of midline structures. There are no extra-axial fluid collections. The ventricles are not enlarged or shifted and there is no blo od within the ventricular system nor within the basal cisterns. Again noted is periventricular white matter hypodensity consistent with chronic small-vessel white ma tter disease. Small area of focal hypodensity in the right frontal lobe is unchanged from prior stud y. IMPRESSION: No acute intracranial findings on this noninfused CT scan of the brain. Chronic small-vessel white matter ischemic changes, unchanged from 12/06/2020. Report called by myself to ER physician. RADIATION DOSE DELIVERED: Total DLP DATA REPOSITORY: All CT scans at this facility are submitted to the National Radiology Data Registry (NRDR) Dose Index Registry (DIR) with the [employer] (ACR). RADIATION OPTIMIZATION: All CT scans at this facility use at least one of these dose optimization te chniques: automated exposure control; mA and/or kV adjustment per patient size (includes targeted exa ms where dose is matched to clinical indication); or iterative reconstruction.
[2021-05-15 13:09] LABS: Bilirubin Negative (Negative); Blood Small (Negative); Clarity Clear (Clear); Glucose Negative (Negative); Ketones Trace mg/dL (Negative); Leukocyte Esterase Negative (Negative); Nitrite Negative (Negative); Specific Gravity >= 1.030 (1.005-1.025)
--- NOTE | 2021-05-15 13:15 | DI.CT_ITS ---
Exam(s) CT BRAIN NECK CTA EXAM: CT BRAIN NECK CTA CLINICAL HISTORY: AMS. TECHNIQUE: Imaging Protocol: Axial CT angiography was performed with multi-slice acquisition and mu lti-planar and/or 3D reconstructions. CONTRAST MATERIAL: Intravenous: Omnipaque 350 Contrast volume:structured data in ml COMPARISON: CT CT BRAIN NECK CTA from 12/06/2020 FINDINGS: CTA Neck W: Anterior circulation: Both common carotid arteries ascend with normal luminal diameters. No tight stenosis at the carotid bifurcations on either side. There is mild soft plaque and partially calcified plaque on the lateral wall of the proximal left internal carotid artery with approximately 15-20 percent stenosis. No tig ht stenosis at this level. No significant atherosclerotic involvement of the proximal internal carot id artery on the opposite-right side. Both internal carotid arteries are patent in the upper neck an d skull base. Posterior circulation: Both vertebral arteries originated conventional fashion off the subclavian arteries and ascend with n ormal luminal diameters. No stenosis seen in their origins. In the foramen transverse area and both vertebral arteries exhibit equal normal diameters with no intraluminal thrombus nor dissection and b oth contribute to the formation of the basilar artery at the skull base. CTA Brain W: Anterior circulation: Both internal carotid arteries are patent at the skull base as well as within the cavernous sinuses. Supraclinoid aspects are patent. Both middle cerebral arteries are patent. A1 segments are patent as are the anterior cerebral arteries. No evidence of obvious aneurysm at the level of the anterior communicating artery. Posterior circulation: Both vertebral arteries contribute to the formation of the basilar artery at the skull base. Basilar artery is sends normal luminal diameter. No intraluminal thrombus nor dissection. Distally the bas ilar artery gives off patent bilateral superior cerebellar arteries and above this level terminates a s patent bilateral posterior cerebral arteries. There is no evidence of aneurysm at the level the ti p of the basilar artery nor elsewhere in the [id number]. No evidence of obvious venous sinus thrombosis. CT BRAIN: There is no evidence of intracranial hemorrhage, mass effect, or shift of midline structures. There are no extra-axial fluid collections. Ventricles are not enlarged or shifted and there is no blood w ithin the ventricular system nor within the basal cisterns. There are no ring enhancing lesions in t he brain and no abnormal meningeal enhancement. There is abundant bilateral Kriss ventricular white matter hypodensity consistent with chronic small v essel disease, unchanged from the prior study 12/06/2020. IMPRESSION: 1. Mild plaque noted at the origin of the left internal carotid artery in the neck, approximately 15- 20 percent stenosis. No high-grade stenosis. No significant plaque nor stenosis on the opposite-rig ht side. 2. Patent intracranial arteries. 3. Also no aneurysms evident. Abundant bilateral white matter chronic ischemic changes. No ring enhancing lesions in the brain. N o evidence of intracranial hemorrhage. RADIATION DOSE DELIVERED: 1,095.97mGy.cm Total DLP DATA REPOSITORY: All CT scans at this facility are submitted to the National Radiology Data Registry (NRDR) Dose Index Registry (DIR) with the [employer] (ACR). RADIATION OPTIMIZATION: All CT scans at this facility use at least one of these dose optimization te chniques: automated exposure control; mA and/or kV adjustment per patient size (includes targeted exa ms where dose is matched to clinical indication); or iterative reconstruction.
[2021-05-15 13:19] LABS: Abs Immature Grans 0.04 10^3/uL (0.0-0.06); Absolute Basophil Count 0.05 10^3/uL (0.0-0.2); Absolute Eosinophil Count 0.23 10^3/uL (0.0-0.7); Absolute Lymphocyte Count 1.21 10^3/uL (1.2-3.4); Absolute Monocyte Count 1.08 10^3/uL (0.1-0.8); Absolute Neutrophil Count 5.57 10^3/uL (1.2-6.7); Basophils % 0.6; Eosinophils % 2.8; HCT 38.9 % (36.0-46.0); HGB 12.7 g/dL (11.2-15.7); Immature Grans % 0.5; Lactate 1.3 mmol/L (0.6-1.4); Lymphocytes % 14.8; MCH 28.5 pg (27.0-33.0); MCHC 32.6 % (32.0-36.0); MCV 87.2 fL (80-95); MPV 11.8 fL (8.0-11.0); Monocytes % 13.2; Neutrophils % 68.1; Nucleated RBC 0 %; Platelet Count 185 10^3/uL (130-400); RBC 4.46 10^6/uL (3.93-5.22); RDW 13.9 % (11.7-14.6); RDW-SD 44.9 fL; WBC 8.18 10^3/uL (4.4-10.8)
[2021-05-15 13:31] LABS: INR 1.4 (0.9-1.1); Prothrombin Time 14.1 sec (9.3-11.0)
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
[2021-05-15 13:39] LABS: Bacteria Few HPF (Negative); Crystals Negative HPF (Negative); Epithelial Cells Few HPF (Negative); WBC 0-2 HPF (0-5)
[2021-05-15 13:40] LABS: C & S Indicated? No; Casts Negative LPF (Negative); Mucus Heavy (Negative)
[2021-05-15] MEDS: Omnipaque 350 MG/ML 100 ML BTL IJ (14:06)
[2021-05-15 14:08] LABS: ALT 25 U/L (14-59); AST 21 U/L (15-37); Albumin 3.4 g/dL (3.4-5.0); Alkaline Phosphatase 124 U/L (46-116); BUN 14 mg/dL (7-18); Bilirubin, Total 0.6 mg/dL (0.2-1.0); CREATININE 0.8 mg/dL (0.55-1.02); Calcium 8.9 mg/dL (8.5-10.1); Chloride 101 mmol/L (98-107); Glucose 107 mg/dL (74-106); Potassium 3.4 mmol/L (3.5-5.1); Sodium 137 mmol/L (136-145); TSH (W/Ref FT4) 1.16 uIU/mL (0.36-3.74); Troponin I < 0.05 ng/mL (<0.06)
--- NOTE | 2021-05-15 14:30 | DI.MRI_ITS ---
Exam(s) MR BRAIN WO EXAM: MR BRAIN WO CLINICAL HISTORY: concern for CVA TECHNIQUE: Multiplanar multisequence MRI of the brain was performed. COMPARISON: No exams were available for comparison FINDINGS: CEREBRAL PARENCHYMA: There is no evidence of intracranial hemorrhage, mass effect, or shift of midline structures. There are no extra-axial fluid collections. Ventricles are not enlarged or shifted. There is no significant focal signal abnormality in the cerebellar hemispheres. There is significant multifocal signal abnormality in the Shana in supra ventricular white matter as well as in the centra l rocio. Most probably related to chronic small vessel ischemic changes. There is no abnormal signal to suggest restricted diffusion on the DWI sequence. There is no abnormal signal abnormality in the periventricular white matter. There is no significant focal signal abnormality evident on diffusion imaging to suggest acute ischem ic event. PITUITARY GLAND: No mass nor parasellar abnormality. No obvious abnormality in the cavernous sinuses. FLOW VOIDS: The expected flow void are noted. No evidence of obvious aneurysm nor obvious vascular ma lformation. PARANASAL SINUSES: The visualized paranasal sinuses appear unremarkable. No obvious finding ORBITS: No obvious findings. IMPRESSION: Multifocal chronic small-vessel white matter ischemic changes in the shana and supra ventricular white matter as well as in the rocio. However, there is no abnormal signal on diffusion imaging to suggest acute infarct core. No evidence of intracranial hemorrhage. DATA REPOSITORY:
--- NOTE | 2021-05-15 15:47 | HPE_ITS ---
Date of service: 05/15/21 Time of Service: 15:47 Assessment and Plan Assessment and plan (1) Altered mental status: Status: Acute Assessment and plan: work up so far negative no new medication or suspected toxins referred to observation neurology consult telemetry will try IV ativan, if effective start keppra EEG safety precaution (2) Hypothyroidism: Status: Chronic Assessment and plan: TSH 1.16, continue levothyroxine Qualifiers: Hypothyroidism type: acquired Qualified Code(s): E03.9 - Hypothyroidism, unspecified (3) Essential hypertension: Status: Chronic Assessment and plan: blood pressure stable, continue home medication discussed with DR Vu History of Present Illness History of Present Illness Chief Complaint: altered mental status Narrative: presents to the ED with sudden onset of confusion, found with aphasia, otherwise unremarkable neuro exam including head and neck CTA and MRI, both without evidence of acute CVA, there are no findings of infectious etiology with negative urine and no fevers or meningeal signs. hospitalist is asked to admit for monitoring and further evaluation. Review of Systems Unobtainable due to mental status [facility] Medical History Anxiety (09/21/17) Chronic pain due to injury (02/13/16) Depressive disorder Elevated fasting glucose Essential hypertension (09/12/13) Excessive cerumen in right ear canal Gastroesophageal reflux disease with esophagitis 06/15 EGD: GASTRITIS, GASTRIC POLYP, HIATAL HERNIA Hypothyroidism (09/27/08) Insomnia (08/13/16) Invasive ductal carcinoma of left breast (06/23/19) pT1c, pN0(sn), ER+/VT+, HER2/MARTIN 1+/NEG Low back pain of multiple sites of spine with sciatica (10/06/13) Lumbago (10/06/13) Right ear pain Vitamin B12 deficiency (04/25/14) Wrist pain, right (06/29/17) Surgical History Biopsy of breast H/O colonoscopy (06/15/09) History of esophagogastroduodenoscopy (06/15/09) Hysterectomy, Laproscopic S/P lumpectomy, left breast (06/23/19) s/p left breast lumpectomy and left axillary sentinel node biopsy; (Dr. Liya Hernandez, [facility], [place], [place]) Status post total right knee replacement (04/07/18) Dr. Ac [facility] [place] 02/17/18 Family History Mother , 7 Stroke Parkinson's disease Asthma Heart disease Father , 71 Stroke Polio Sister , 64 Diabetes Stroke Parkinson's disease Brother Heart disease Brother Heart disease S/P CABG Maternal Grandfather , PNEUMONIA at age 36. No problems noted. Paternal Grandfather No problems noted. Maternal Grandmother Heart disease Paternal Grandmother No problems noted. Sister Alzheimer's disease Sister Dementia Son , 58 No problems noted. Daughter Depression Daughter No problems noted. Daughter MS (multiple sclerosis) Social History Smoking/Tobacco Use Status: Never Second Hand Exposure: Yes Smoking risk assessment performed?: Yes Alcohol Intake: current Alcohol Intake frequency: holidays/special occasions only Alcohol type: beer Drug use: Never Substance use type: does not use Counseling given: No Counseling provided: none Household members: none Number of Children: 4 Do you need help understanding health information?: Often Pets and animals: Yes Pets and animals: cat(s) Sexually active: No Do you think of yourself as: straight/heterosexual Current gender identity: female What is your relationship status?: How often do you talk on the phone with friends or family?: twice per week How often do you get together with friends or relatives?: once per week How often do you attend religious or mandaeism services?: 4 or more times per year Do you belong to any clubs or organized social groups?: no Panel score (0-1 are the most socially isolated patients): 2 What type of physical activity do you participate in: none Dawn/Moravian: Restorationist Special dawn needs: No Seatbelt use: always Helmet use: No 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 Both are now . [place] (WEARS AIDES) Meds Allergies and Home Medications Allergies Allergy/AdvReac Type Severity Reaction Status Date / Time mold Allergy Intermediate SOB Verified 05/15/21 12:24 lactose AdvReac Severe Intolerant Verified 05/15/21 12:24 pentazocine lactate AdvReac Severe Psychosis Verified 05/15/21 12:24 [From [place]] codeine AdvReac Intermediate Nausea Verified 05/15/21 12:24 honey dew melon Allergy Severe Anaphylaxsi Uncoded 05/15/21 12:24 s Home Medications Medication Instructions Recorded Confirmed Type cholecalciferol (vitamin D3) 1,000 unit PO DAILY #100 tab-cap 08/28/15 05/07/21 History nystatin 1 angi TOPICAL BID PRN #60 gm 02/13/16 05/07/21 History acetaminophen 500 mg tablet 500 mg PO Q6H PRN 06/03/18 05/07/21 History letrozole 2.5 mg tablet 2.5 mg PO DAILY #90 tab 05/15/20 05/07/21 Rx levothyroxine 100 mcg tablet 100 mcg PO DAILY #30 tab 05/15/20 05/07/21 Rx aspirin 81 mg PO DAILY #100 tab 12/07/20 05/07/21 Rx atorvastatin 40 mg tablet 40 mg PO QHS #90 tab 01/22/21 05/07/21 Rx ferrous fumarate 324 mg (106 mg 324 mg PO .COMPLEX #45 tab 02/19/21 05/07/21 Rx iron) tablet omeprazole 40 mg capsule,delayed 40 mg PO DAILY #30 tab-cap 03/28/21 05/07/21 Rx release escitalopram oxalate 10 mg tablet 20 mg PO DAILY tab 05/07/21 05/07/21 History gabapentin 300 mg capsule 300 mg PO BID cap 05/07/21 05/07/21 History Results Labs Result diagrams: 05/15/21 13:10 05/15/21 13:10 Labs: Laboratory Results - last 24 hr 05/15/21 05/15/21 05/15/21 13:00 13:10 13:10 WBC RBC Hgb Hct MCV MCH MCHC RDW Plt Count MPV Immature Gran % Neutrophils % Lymphocytes % Monocytes % Eosinophils % Basophils % Nucleated RBC % Absolute Neutrophils Absolute Lymphocytes Absolute Monocytes Absolute Eosinophils Absolute Basophils PT INR VBG Lactate 1.3 Sodium 137 Potassium 3.4 L Chloride 101 Carbon Dioxide 26.0 Anion Gap 10.0 BUN 14 Creatinine 0.8 Estimated GFR/1.73 m2 >= 60.00 Glucose 107 H Calcium 8.9 Total Bilirubin 0.6 AST 21 ALT 25 Alkaline Phosphatase 124 H Troponin I < 0.05 Total Protein 7.0 Albumin 3.4 TSH 1.16 Urine Color Yellow Urine Clarity Clear Urine pH 6.0 Ur Specific [place] >= 1.030 H Urine Protein 30 H Urine Ketones Trace H Urine Blood Small H Urine Nitrite Negative Urine Bilirubin Negative Urine Urobilinogen 2.0 H Ur Leukocyte Esterase Negative Urine RBC 10-20 H Urine WBC 0-2 Ur Epithelial Cells Few Urine Crystals Negative Urine Bacteria Few Urine Casts Negative Urine Mucus Heavy Ur Culture Indicated? No Urine Glucose Negative 05/15/21 05/15/21 13:10 13:10 WBC 8.18 RBC 4.46 Hgb 12.7 Hct 38.9 MCV 87.2 MCH 28.5 MCHC 32.6 RDW 13.9 Plt Count 185 MPV 11.8 H Immature Gran % 0.5 Neutrophils % 68.1 Lymphocytes % 14.8 Monocytes % 13.2 Eosinophils % 2.8 Basophils % 0.6 Nucleated RBC % 0 Absolute Neutrophils 5.57 Absolute Lymphocytes 1.21 Absolute Monocytes 1.08 H Absolute Eosinophils 0.23 Absolute Basophils 0.05 PT 14.1 H INR 1.4 H VBG Lactate Sodium Potassium Chloride Carbon Dioxide Anion Gap BUN Creatinine Estimated GFR/1.73 m2 Glucose Calcium Total Bilirubin AST ALT Alkaline Phosphatase Troponin I Total Protein Albumin TSH Urine Color Urine Clarity Urine pH Ur Specific [place] Urine Protein Urine Ketones Urine Blood Urine Nitrite Urine Bilirubin Urine Urobilinogen Ur Leukocyte Esterase Urine RBC Urine WBC Ur Epithelial Cells Urine Crystals Urine Bacteria Urine Casts Urine Mucus Ur Culture Indicated? Urine Glucose Last Vital Signs Temp 36.6 C 05/15/21 12:15 Pulse 98 H 05/15/21 12:15 Resp 12 05/15/21 15:43 BP 153/64 H 05/15/21 12:15 Pulse Ox 96 05/15/21 12:15
[2021-05-15 16:27] LABS: Troponin I < 0.05 ng/mL (<0.06)
[2021-05-15 16:37] LABS: Source Nasal/Nares
[2021-05-15 16:40] LABS: Magnesium 1.7 mg/dL (1.8-2.4)
[2021-05-15] MEDS: Potassium Chloride 20 MEQ TABCR 40 MEQ PO (16:46)
[2021-05-15 17:00] LABS: *AMPHETAMINES SCREEN URINE Negative (Negative); *BARBITURATES SCREEN URINE Negative (Negative); *BENZODIAZEPINES SCREEN URINE Negative (Negative); Cannabinoids THC Negative (Negative); Cocaine Screen,Urine Negative (Negative); METHADONE URINE SCREEN Negative (Negative); OPIATES URINE SCREEN Negative (Negative)
[2021-05-15 17:02] LABS: Tricyclic Antidepressants Negative (Negative)
[2021-05-15 17:20] LABS: Vitamin B12 376 pg/mL (193-986)
[2021-05-15 17:44] LABS: COVID-19 PCR Negative (Negative)
[2021-05-15 19:04] LABS: Salicylate < 2.8 mg/dL (<2.8)
--- NOTE | 2021-05-15 19:16 | HPE_ITS ---
Date of service: 05/15/21 Time of Service: 19:20 Assessment and Plan Assessment and plan (1) Altered mental status: Status: Acute Assessment and plan: Appreciate neurology consult. Questionably a small seizure focus not seen on the EEG performed in the ED. Previously had a similar episode that lasted for a much shorter time and thought then to be a TIA. Keppra 2000mg IV loading dose given. Keppra 1000mg po BID starting in the AM. (2) Hypothyroidism: Status: Chronic Assessment and plan: TSH normal. Cont replacement tx. Qualifiers: Hypothyroidism type: acquired Qualified Code(s): E03.9 - Hypothyroidism, unspecified (3) Depressive disorder: Status: Chronic Assessment and plan: Cont escitalopram. (4) Restless leg syndrome: Status: Acute Assessment and plan: Cont gabapentin History of Present Illness History of Present Illness Chief Complaint: Altered mental status Narrative: This is a 75 yo female with a PMH of questionable TIA, hypothyroidism, HTN, depression. EMS was called to her home for altered mental status. She was noted to be alert and would answer some questions. Noted to have slowed responses. She did recall having several episodes of emesis and some loose stools in the AM of presentation. Her daughter provided some information also. She indicated she was made aware of the emesis and loose stools at appx 1130AM. This was reported to the daughter by the patients caregiver. The daughter stated this was a similar presentation when she was thought to have had a TIA. CBC unremarkable. K 3.4. Creatinine 0.8. Mg 1.7. CTA head w/o significant stenosis. CT head w/o acute findings. + chronic small-vessel white matter ischemic changes similar to 12/06/2020. MRI brain w/o acute findings. EEG showed slowing. No focal seizure activity. Review of Systems All systems reviewed & are unremarkable except as noted in HPI and below [facility] Medical History Anxiety (09/21/17) Chronic pain due to injury (02/13/16) Depressive disorder Elevated fasting glucose Essential hypertension (09/12/13) Excessive cerumen in right ear canal Gastroesophageal reflux disease with esophagitis 06/15 EGD: GASTRITIS, GASTRIC POLYP, HIATAL HERNIA Hypothyroidism (09/27/08) Insomnia (12/07/16) Invasive ductal carcinoma of left breast (06/23/19) pT1c, pN0(sn), ER+/OK+, HER2/MARTIN 1+/NEG Low back pain of multiple sites of spine with sciatica (10/06/13) Lumbago (10/06/13) Right ear pain Vitamin B12 deficiency (04/25/14) Wrist pain, right (06/29/17) Surgical History Biopsy of breast H/O colonoscopy (06/15/09) History of esophagogastroduodenoscopy (06/15/09) Hysterectomy, Laproscopic S/P lumpectomy, left breast (06/23/19) s/p left breast lumpectomy and left axillary sentinel node biopsy; (Dr. Liya Hernandez, [facility], [place], [place]) Status post total right knee replacement (04/07/18) Dr. Ac [facility] [place] 02/17/18 Family History Mother , 7 Stroke Parkinson's disease Asthma Heart disease Father , 71 Stroke Polio Sister , 64 Diabetes Stroke Parkinson's disease Brother Heart disease Brother Heart disease S/P CABG Maternal Grandfather , PNEUMONIA at age 36. No problems noted. Paternal Grandfather No problems noted. Maternal Grandmother Heart disease Paternal Grandmother No problems noted. Sister Alzheimer's disease Sister Dementia Son , 58 No problems noted. Daughter Depression Daughter No problems noted. Daughter MS (multiple sclerosis) Social History Smoking/Tobacco Use Status: Never Second Hand Exposure: Yes Smoking risk assessment performed?: Yes Alcohol Intake: current Alcohol Intake frequency: holidays/special occasions only Alcohol type: beer Drug use: Never Substance use type: does not use Counseling given: No Counseling provided: none Household members: none Number of Children: 4 Do you need help understanding health information?: Often Pets and animals: Yes Pets and animals: cat(s) Sexually active: No Do you think of yourself as: straight/heterosexual Current gender identity: female What is your relationship status?: How often do you talk on the phone with friends or family?: twice per week How often do you get together with friends or relatives?: once per week How often do you attend buddhist or presybeterian services?: 4 or more times per year Do you belong to any clubs or organized social groups?: no Panel score (0-1 are the most socially isolated patients): 2 What type of physical activity do you participate in: none Dawn/Taoist: Confucianist Special dawn needs: No Seatbelt use: always Helmet use: No Drive intox 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 Both are now . [place] (WEARS AIDES) Meds Allergies and Home Medications Allergies Allergy/AdvReac Type Severity Reaction Status Date / Time mold Allergy Intermediate SOB Verified 05/15/21 12:24 lactose AdvReac Severe Intolerant Verified 05/15/21 12:24 pentazocine lactate AdvReac Severe Psychosis Verified 05/15/21 12:24 [From [place]] codeine AdvReac Intermediate Nausea Verified 05/15/21 12:24 honey dew melon Allergy Severe Anaphylaxsi Uncoded 05/15/21 12:24 s Home Medications Medication Instructions Recorded Confirmed Type cholecalciferol (vitamin D3) 1,000 unit PO DAILY #100 tab-cap 08/28/15 05/07/21 History nystatin 1 angi TOPICAL BID PRN #60 gm 02/13/16 05/07/21 History acetaminophen 500 mg tablet 500 mg PO Q6H PRN 06/03/18 05/07/21 History letrozole 2.5 mg tablet 2.5 mg PO DAILY #90 tab 05/15/20 05/07/21 Rx levothyroxine 100 mcg tablet 100 mcg PO DAILY #30 tab 05/15/20 05/07/21 Rx aspirin 81 mg PO DAILY #100 tab 12/07/20 05/07/21 Rx atorvastatin 40 mg tablet 40 mg PO QHS #90 tab 01/22/21 05/07/21 Rx ferrous fumarate 324 mg (106 mg 324 mg PO .COMPLEX #45 tab 02/19/21 05/07/21 Rx iron) tablet omeprazole 40 mg capsule,delayed 40 mg PO DAILY #30 tab-cap 03/28/21 05/07/21 Rx release escitalopram oxalate 10 mg tablet 20 mg PO DAILY tab 05/07/21 05/07/21 History gabapentin 300 mg capsule 300 mg PO BID cap 05/07/21 05/07/21 History Exam Narrative Exam Narrative: Patient had ambulated to the bathroom w/o assistance and ambulated back w/o difficulty. Const General: cooperative and no acute distress Nutritional Appearance: obese Orientation: awake and oriented to person [facility] Head: normocephalic and atraumatic Neck Neck: full ROM and no JVD Resp Effort & Inspection: normal respiratory effort Auscultation: clear to auscultation bilaterally Cardio Rate: regular rate Rhythm: regular rhythm Heart Sounds: S1 normal and S2 normal GI Palpation: soft and nontender Skin General skin exam: no rashes or lesions noted Neuro General: no focal motor deficits Cranial Nerves: no nystagmus and facial strength normal Speech: expressive aphasia (able to answer in short sentences. Some slowing of speech.) and other Gait: normal gait (Slow/cautious) Extrem General: no pedal edema and no calf tenderness Results Labs Result diagrams: 05/15/21 13:10 05/15/21 13:10 Labs: Laboratory Results - last 24 hr 05/15/21 05/15/21 05/15/21 13:00 13:00 13:10 WBC RBC Hgb Hct MCV MCH MCHC RDW Plt Count MPV Immature Gran % Neutrophils % Lymphocytes % Monocytes % Eosinophils % Basophils % Nucleated RBC % Absolute Neutrophils Absolute Lymphocytes Absolute Monocytes Absolute Eosinophils Absolute Basophils PT INR VBG Lactate Sodium 137 Potassium 3.4 L Chloride 101 Carbon Dioxide 26.0 Anion Gap 10.0 BUN 14 Creatinine 0.8 Estimated GFR/1.73 m2 >= 60.00 Glucose 107 H Calcium 8.9 Magnesium Total Bilirubin 0.6 AST 21 ALT 25 Alkaline Phosphatase 124 H Troponin I < 0.05 Total Protein 7.0 Albumin 3.4 Vitamin B12 TSH 1.16 Urine Color Yellow Urine Clarity Clear Urine pH 6.0 Ur Specific [place] >= 1.030 H Urine Protein 30 H Urine Ketones Trace H Urine Blood Small H Urine Nitrite Negative Urine Bilirubin Negative Urine Urobilinogen 2.0 H Ur Leukocyte Esterase Negative Urine RBC 10-20 H Urine WBC 0-2 Ur Epithelial Cells Few Urine Crystals Negative Urine Bacteria Few Urine Casts Negative Urine Mucus Heavy Ur Culture Indicated? No Urine Glucose Negative Salicylates Urine Opiates Screen Negative Urine Methadone Screen Negative Ur Barbiturates Screen Negative Ur Tricyclics Screen Negative Ur Amphetamines Screen Negative U Benzodiazepines Scrn Negative Urine Cocaine Screen Negative Ur THC Screen Negative COVID-19 Source SARS-CoV-2 (PCR) 05/15/21 05/15/21 05/15/21 13:10 13:10 13:10 WBC 8.18 RBC 4.46 Hgb 12.7 Hct 38.9 MCV 87.2 MCH 28.5 MCHC 32.6 RDW 13.9 Plt Count 185 MPV 11.8 H Immature Gran % 0.5 Neutrophils % 68.1 Lymphocytes % 14.8 Monocytes % 13.2 Eosinophils % 2.8 Basophils % 0.6 Nucleated RBC % 0 Absolute Neutrophils 5.57 Absolute Lymphocytes 1.21 Absolute Monocytes 1.08 H Absolute Eosinophils 0.23 Absolute Basophils 0.05 PT 14.1 H INR 1.4 H VBG Lactate 1.3 Sodium Potassium Chloride Carbon Dioxide Anion Gap BUN Creatinine Estimated GFR/1.73 m2 Glucose Calcium Magnesium Total Bilirubin AST ALT Alkaline Phosphatase Troponin I Total Protein Albumin Vitamin B12 TSH Urine Color Urine Clarity Urine pH Ur Specific [place] Urine Protein Urine Ketones Urine Blood Urine Nitrite Urine Bilirubin Urine Urobilinogen Ur Leukocyte Esterase Urine RBC Urine WBC Ur Epithelial Cells Urine Crystals Urine Bacteria Urine Casts Urine Mucus Ur Culture Indicated? Urine Glucose Salicylates Urine Opiates Screen Urine Methadone Screen Ur Barbiturates Screen Ur Tricyclics Screen Ur Amphetamines Screen U Benzodiazepines Scrn Urine Cocaine Screen Ur THC Screen COVID-19 Source SARS-CoV-2 (PCR) 05/15/21 05/15/21 05/15/21 16:05 16:05 16:05 WBC RBC Hgb Hct MCV MCH MCHC RDW Plt Count MPV Immature Gran % Neutrophils % Lymphocytes % Monocytes % Eosinophils % Basophils % Nucleated RBC % Absolute Neutrophils Absolute Lymphocytes Absolute Monocytes Absolute Eosinophils Absolute Basophils PT INR VBG Lactate Sodium Potassium Chloride Carbon Dioxide Anion Gap BUN Creatinine Estimated GFR/1.73 m2 Glucose Calcium Magnesium 1.7 L Total Bilirubin AST ALT Alkaline Phosphatase Troponin I < 0.05 Total Protein Albumin Vitamin B12 376 TSH Urine Color Urine Clarity Urine pH Ur Specific [place] Urine Protein Urine Ketones Urine Blood Urine Nitrite Urine Bilirubin Urine Urobilinogen Ur Leukocyte Esterase Urine RBC Urine WBC Ur Epithelial Cells Urine Crystals Urine Bacteria Urine Casts Urine Mucus Ur Culture Indicated? Urine Glucose Salicylates Urine Opiates Screen Urine Methadone Screen Ur Barbiturates Screen Ur Tricyclics Screen Ur Amphetamines Screen U Benzodiazepines Scrn Urine Cocaine Screen Ur THC Screen COVID-19 Source SARS-CoV-2 (PCR) 05/15/21 05/15/21 16:30 18:36 WBC RBC Hgb Hct MCV MCH MCHC RDW Plt Count MPV Immature Gran % Neutrophils % Lymphocytes % Monocytes % Eosinophils % Basophils % Nucleated RBC % Absolute Neutrophils Absolute Lymphocytes Absolute Monocytes Absolute Eosinophils Absolute Basophils PT INR VBG Lactate Sodium Potassium Chloride Carbon Dioxide Anion Gap BUN Creatinine Estimated GFR/1.73 m2 Glucose Calcium Magnesium Total Bilirubin AST ALT Alkaline Phosphatase Troponin I Total Protein Albumin Vitamin B12 TSH Urine Color Urine Clarity Urine pH Ur Specific [place] Urine Protein Urine Ketones Urine Blood Urine Nitrite Urine Bilirubin Urine Urobilinogen Ur Leukocyte Esterase Urine RBC Urine WBC Ur Epithelial Cells Urine Crystals Urine Bacteria Urine Casts Urine Mucus Ur Culture Indicated? Urine Glucose Salicylates < 2.8 Urine Opiates Screen Urine Methadone Screen Ur Barbiturates Screen Ur Tricyclics Screen Ur Amphetamines Screen U Benzodiazepines Scrn Urine Cocaine Screen Ur THC Screen COVID-19 Source Nasal/Nares SARS-CoV-2 (PCR) Negative Last Vital Signs Temp 36.6 C 05/15/21 17:25 Pulse 81 05/15/21 17:39 Resp 12 05/15/21 17:25 BP 157/56 H 05/15/21 17:25 Pulse Ox 99 05/15/21 17:25
[2021-05-15] MEDS: Gabapentin 300 MG CAP PO (19:32)
[2021-05-15] MEDS: MAGNESIUM SULFATE 2 GM/50 ML BAG IVPB (19:32)
[2021-05-15] MEDS: Normal Saline Flush 10 ML SYR IVP (19:32)
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
--- NOTE | 2021-05-15 19:52 | PDOC.EEG ---
Neurology EEG EEG: [facility] Department of Neurology INPATIENT EEG REPORT Date of Recordin05/15/21 Interpreting Physician: Dr. Alma Salinas Reason for study: Ms. Tolentino is a 75 year-old woman admitted with altered mental status and asphasia. Current Medications: She has not received LEV at the time of the recording. Current Medications Acetaminophen (Acetaminophen 325 Mg Tab) 650 mg PO Q4H PRN PRN Aspirin (Aspirin E.C. 81 Mg Tabec) 81 mg PO DAILY NEFTALY Atorvastatin Calcium (Atorvastatin 40 Mg Tab) 40 mg PO HS NEFTALY Dimethicone/Zinc Oxide (Manjit Protect Cream 142 Gm Tube) 0 gm TP PRN PRN Docusate Sodium (Docusate Sodium 100 Mg Cap) 100 mg PO TID PRN PRN Escitalopram Oxalate (Escitalopram 10 Mg Tab) 20 mg PO DAILY NEFTALY Gabapentin (Gabapentin 300 Mg Cap) 300 mg PO BID [facility] Last Admin: 05/15/21 19:32 Dose: 300 mg Documented by: Heparin Sodium (Porcine) (Heparin 5,000 Units/Ml Vial) 5,000 units SC Q8H [facility] Magnesium Sulfate () 2 gm in 50 mls @ 25 mls/hr IVPB NOW ONE Stop: 05/15/21 20:51 Last Admin: 05/15/21 19:32 Dose: 25 mls/hr Documented by: IV Miscellaneous Supplies (Iv Access) 1 each IV DIRECTED [facility] Iohexol (Omnipaque 350 Mg/Ml 100 Ml Btl) 100 ml IJ DIRECTED [facility] Stop: 06/14/21 23:59 Last Admin: 05/15/21 14:06 Dose: 85 ml Documented by: Letrozole (Letrozole 2.5 Mg Tab) 2.5 mg PO DAILY NEFTALY Levetiracetam (Levetiracetam 250 Mg Tab) 1,000 mg PO BID NEFTALY Levothyroxine Sodium (Levothyroxine 100 Mcg Tab) 100 mcg PO 0600 NEFTALY Omeprazole (Omeprazole 20 Mg Capcr) 40 mg PO DAILY@0730 NEFTALY Polyethylene Glycol (Polyethylene Glycol 3350 17 Gm Packet) 17 gm PO DAILY PRN PRN PRN Reason: Constipation Sodium Chloride (Normal Saline Flush 10 Ml Syr) 0 ml IVP PRN PRN Last Admin: 05/15/21 19:32 Dose: 20 ml Documented by: Sodium Chloride (Normal Saline 50 Ml Bag) 50 ml IJ DIRECTED [facility] Last Admin: 05/15/21 14:07 Dose: 50 ml Documented by: METHODS: A 21 channel digitized electroencephalogram was performed in the [facility] Med/Surg Floor or ICU. The 10/20 international system of electrode placement was used and bipolar and referential electrode montages were recorded. In addition to EEG the patient was monitored for EKG and lateral/vertical eye movements. Activation procedures of photic stimulation and hyperventilation were performed if applicable. Video was used during activation procedures and during events where applicable. The duration of the recording was 30 minutes. DESCRIPTION OF EEG: The patient was noted to be awake and drowsy during the recording. During maximal wakefulness a 7-8 Hz posterior background rhythm was present which was well-modulated, symmetrical, reactive to eye opening, and of moderate voltage. With eye opening the background activity changed to a low voltage mixture of alpha, beta, and occasional theta range frequencies. Faster frequencies were present in the bilateral anterior head regions. There was a normal anterior-posterior voltage gradient. During drowsiness, there was attenuation of the posterior dominant background rhythm and vertex waves. No stage II sleep was recorded. There was continuous, polymorphic, generalized, moderate amplitude theta and delta slowing throughout the recording. At brief moments, it seemed a bit rhythmic, however, this was not ever sustained and did not appear ictal to me. Activating Procedures: Photic stimulation was performed which produced no posterior driving response. Hyperventilation was not performed. EKG: EKG revealed normal sinus rhythm. INTERPRETATION: This EEG is abnormal due to: #1. Generalized polymorphic theta and delta slowing. #2. Slowing of the posterior dominant rhythm. PRIOR EEG: none CLINICAL CORRELATION: The background and generalized slowing is suggestive of a mild-moderate diffuse cerebral encephalopathy of broad differential including toxic-metabolic etiology. No focal regions of cerebral dysfunction or epileptiform activity was present. Clinical correlation is advised. Alma Salinas MD
[2021-05-15] MEDS: levETIRAcetam 2,000 MG in Normal Saline 100 ML 400 MG IVPB (22:09)
[2021-05-15] MEDS: Heparin 5,000 UNITS/ML VIAL 5000 UNITS SC (22:34)
[2021-05-15] MEDS: Atorvastatin 40 MG TAB PO (22:34)
[2021-05-15] MEDS: Acetaminophen 325 MG TAB 650 MG PO (22:40)
[2021-05-16] VITALS (16 sets, daily range): BP systolic 129–188; BP diastolic 73–102; PULSE 60–84; RESP 19–20; TEMP 36.6–39.6; O2SAT 95–97
--- NOTE | 2021-05-16 | DI.RAD_ITS ---
Exam(s) XR CHEST 2V PA LATERAL EXAM: XR CHEST 2V PA LATERAL CLINICAL HISTORY: altered mental status. TECHNIQUE: 2D digital imaging was performed. COMPARISON: CR XR CHEST 2V PA LATERAL from 06/14/2019 CR XR CHEST 2V PA LATERAL from 06/14/2019 CR XR CHEST 2V PA LATERAL from 12/06/2020 FINDINGS: Heart size is normal. The mediastinum is not widened. There appears to be a small retrocardiac hiat al hernia. Left lung is clear. Mild increased markings in the right parahilar region noted, possible infiltrate . No pleural effusions. IMPRESSION: Possible subtle right parahilar infiltrate. CT scan recommended. DATA REPOSITORY: RADIATION DOSE DELIVERED:
[2021-05-16] MEDS: Heparin 5,000 UNITS/ML VIAL 5000 UNITS SC (05:30)
[2021-05-16] MEDS: Levothyroxine 100 MCG TAB PO (05:30)
[2021-05-16 07:45] LABS: Abs Immature Grans 0.03 10^3/uL (0.0-0.06); Absolute Basophil Count 0.05 10^3/uL (0.0-0.2); Absolute Eosinophil Count 0.02 10^3/uL (0.0-0.7); Absolute Lymphocyte Count 1.16 10^3/uL (1.2-3.4); Absolute Monocyte Count 1.34 10^3/uL (0.1-0.8); Absolute Neutrophil Count 4.05 10^3/uL (1.2-6.7); Basophils % 0.8; Eosinophils % 0.3; HCT 39.9 % (36.0-46.0); HGB 12.8 g/dL (11.2-15.7); Immature Grans % 0.5; Lymphocytes % 17.4; MCH 28.1 pg (27.0-33.0); MCHC 32.1 % (32.0-36.0); MCV 87.5 fL (80-95); MPV 12.1 fL (8.0-11.0); Monocytes % 20.2; Neutrophils % 60.8; Nucleated RBC 0 %; Platelet Count 172 10^3/uL (130-400); RBC 4.56 10^6/uL (3.93-5.22); RDW 14.1 % (11.7-14.6); RDW-SD 45.4 fL; WBC 6.65 10^3/uL (4.4-10.8)
[2021-05-16] MEDS: Gabapentin 300 MG CAP PO ×2 (07:46→23:05)
[2021-05-16] MEDS: Aspirin E.C. 81 MG TABEC PO (07:46)
[2021-05-16] MEDS: levETIRAcetam 250 MG TAB 1000 MG PO (07:46)
[2021-05-16] MEDS: Omeprazole 20 MG CAPCR 40 MG PO (07:46)
[2021-05-16] MEDS: Acetaminophen 325 MG TAB 650 MG PO ×3 (07:46→23:29)
[2021-05-16] MEDS: Escitalopram 10 MG TAB 20 MG PO (07:46)
[2021-05-16 08:00] LABS: Anion Gap 8.4 mmol/L (3-11); BUN 13 mg/dL (7-18); CO2 27.6 mmol/L (21.0-32.0); CREATININE 0.7 mg/dL (0.55-1.02); Calcium 8.9 mg/dL (8.5-10.1); Chloride 104 mmol/L (98-107); Glucose 88 mg/dL (74-106); Potassium 4.3 mmol/L (3.5-5.1); Sodium 140 mmol/L (136-145)
[2021-05-16 08:01] LABS: Magnesium 2.2 mg/dL (1.8-2.4)
--- NOTE | 2021-05-16 08:54 | PDOC.CMIN ---
- If Service Date Differs Date of service: 05/16/21 Time of Service: 08:54 Care Management Initial Assess REASON FOR HOSPITALIZATION:: AMS PAST MEDICAL HISTORY/PAST SURGICAL HISTORY:: Medical History . Anxiety (09/21/17). Chronic pain due to injury (02/13/16). Depressive disorder. Elevated fasting glucose. Essential hypertension (09/12/13). Excessive cerumen in right ear canal. Gastroesophageal reflux disease with esophagitis. 06/15 EGD: GASTRITIS, GASTRIC POLYP, HIATAL HERNIA. Hypothyroidism (09/27/08). Insomnia (08/13/16). Invasive ductal carcinoma of left breast (06/23/19). pT1c, pN0(sn), ER+/NC+, HER2/MARTIN 1+/NEG. Low back pain of multiple sites of spine with sciatica (10/06/13). Lumbago (10/06/13). Right ear pain. Vitamin B12 deficiency (04/25/14). Wrist pain, right (06/29/17). Surgical History . Biopsy of breast. H/O colonoscopy (06/15/09). History of esophagogastroduodenoscopy (06/15/09). Hysterectomy, Laproscopic. S/P lumpectomy, left breast (06/23/19). s/p left breast lumpectomy and left axillary sentinel node biopsy; (Dr. Liya Hernandez, [facility], [place], [place]). Status post total right knee replacement (04/07/18). Dr. Ac [facility] 02/17/18 PREVIOUS FUNCTIONAL STATUS/SOCIAL/FAMILY SUPPORTS:: Daja lives at the [facility] in [facility] with her cat. Her daughter is very supportive and lives in [place]. Daja's case management assistant in the community is Lucretia Keen [facility], and she also receives support from GRACE Brito. She does not drive but is otherwise independent at baseline. CURRENT FUNCTIONAL STATUS:: Daja was lying in bed when CM met with her. She was experiencing confusion and her blood pressure was markedly elevated at that time. Daja's daughter Codi was present and helped to anwser questions. Per Codi, Daja is independent at baseline and does not require any assistive devices for ambulation. For longre distances, such as going shopping, Daja uses a scooter. ADVANCE DIRECTIVES:: On file. daughter Codi SHELL Has patient been provided with info about the portal/API?: Yes Did the patient sign up for the portal?: No CODE STATUS:: DNR/DNI INSURANCE COVERAGE / FINANCIAL ISSUES:: Medicare. Medicaid CURRENT HOME/COMMUNITY SERVICES/EQUIPMENT:: [facility] case management, Lucretia Keen; Del Begum [facility]. PRIMARY CARE PHYSICIAN:: Candie Guy POTENTIAL DISCHARGE NEEDS:: Follow up with PCP and community supports PATIENT/FAMILY EDUCATION NEEDS:: Review discharge instructions regarding activity levels and medications, discussion of self care needs and goals of care, limitations, Ask Me Three. TRANSPORTATION:: likely via [facility] private vehicle, coordinated by CM. PLAN:: Anticipate Daja will return home once medically cleared. She will be driven home via [facility] private vehicle, coordinated by CM. She will follow up with her PCP, Neuro, and her discharge plan of care. CM will continue to follow.
[2021-05-16] MEDS: Letrozole 2.5 MG TAB PO (10:09)
--- NOTE | 2021-05-16 12:22 | W.ANESPROC ---
Lumbar Puncture Date Performed: 05/16/21 Procedure Time: 12:10 Requesting Provider: Nadia Pham Procedure Location: Med/Surg Standard Monitors Applied: None Used Patient Position: Right Lateral Decubitus Timeout Performed: Yes Sedation Given (Indicate Dose Given): No Sedation given Patient Mental Status: Awake Sterility: Hand Hygiene, Surgical Cap, Surgical Mask, Sterile Gloves, Sterile Drape/Sheet, Eye Protection and Chlorhexidine Placement Site: L3-L4 Interspace Spinal Needle Type: Quincke 22 Gauge Needle Length: 3.5 Inch Lumbar Puncture Procedure: Site Prepped, Sterile Drape Placed, 1% Lidocaine to skin and subcutaneous tissue with 25G needle, Spinal Needle Placed, Negative Heme, Positive CSF Flow, CSF Specimen placed into Tubes in Sequential Order and Specimen Labeled, Sent to Lab Ultrasound: Not Used Opening CSF Pressure (cmH2O): 14 Paresthesia: None Number of Previous Attempts by Other Providers: 0 Number of Attempts (See previous attempts in note section): 1 Procedure Tolerated: No Complications Procedure Outcome: Successful Performed By: Rivas Brady Supervised By: Jaycee Hays
[2021-05-16 12:56] LABS: Glucose (CSF) 57 mg/dL (40-70); Total Protein (CSF) 52 mg/dL (15-45)
[2021-05-16 13:33] LABS: Clarity Clear; RBC 2 /mm3 (0-5); Tube # 4; WBC 0 /uL (0-5); Xanthochromia Absent
[2021-05-16] MEDS: Normal Saline Flush 10 ML SYR IVP ×2 (14:05→16:19)
[2021-05-16] MEDS: cefTRIAXone 2 GM/50 ML BAG IVPB (14:05)
--- NOTE | 2021-05-16 15:01 | W.PM.PROGNOT ---
Date of Service Date of service: 05/16/21 Time of Service: 15:01 Assessment and Plan Assessment and plan (1) Encephalopathy acute: Status: Acute (2) Fever: Status: Acute (3) Altered mental status: Status: Acute Assessment and plan: is a 75 year-old right-handed woman who was admitted with AMS and difficulty getting her words out following emesis and diarrhea. Now with fever. MRI negative for acute stroke and EEG c/w moderate encephalopathy, no epileptiform activity. CSF appears negative for infection. Given negative CSF findings, I think seizure is very unlikely. Ok to stop levetiracetam. Continue aspirin 81mg daily. I will defer to primary team on work-up and treatment of fever. She should follow-up in the neurology clinic in 4-6 weeks. Please call with any further questions or concerns. Subjective Subjective Interval history since last seen: Developed a fever soon after being seen yesterday evening. UA neg. Blood cx pending. LP today: W0, R2, G57, P52. Lyme and tick panel pending. CXR with ?right parahilar infiltrate - CT scan has been recommended. TSH and B12 normal. Some slight improvement, but still slow cognitively per daughter. Recent travel to [place]. No rashes. Exam Narrative Exam Narrative: Physical Exam: Constitutional: Patient of apparent stated age, well nourished, well developed, no acute distress Neuro: MS/Language/Speech: Alert, oriented, no dysarthria; still with some fluency and comprehension issues; naming generally intact but couldn't name cactus Motor: Normal bulk and tone. FMM intact, no pronator drift. Coordination: Finger to nose performed without dysmetria Objective Last Vital Signs Temp 37.7 C H 05/16/21 07:46 Pulse 75 05/16/21 08:00 Resp 20 05/16/21 07:39 BP 153/73 H 05/16/21 07:39 Pulse Ox 97 05/16/21 07:39 Laboratory Results - last 24 hr 05/15/21 05/15/21 05/15/21 13:00 16:05 16:05 WBC RBC Hgb Hct MCV MCH MCHC RDW Plt Count MPV Immature Gran % Neutrophils % Lymphocytes % Monocytes % Eosinophils % Basophils % Nucleated RBC % Absolute Neutrophils Absolute Lymphocytes Absolute Monocytes Absolute Eosinophils Absolute Basophils Xanthochromia Sodium Potassium Chloride Carbon Dioxide Anion Gap BUN Creatinine Estimated GFR/1.73 m2 Glucose Calcium Magnesium Troponin I < 0.05 Vitamin B12 376 CSF Tube Number CSF Color CSF Clarity CSF WBC CSF RBC CSF Diff Comment CSF Glucose CSF Total Protein Salicylates Urine Opiates Screen Negative Urine Methadone Screen Negative Ur Barbiturates Screen Negative Ur Tricyclics Screen Negative Ur Amphetamines Screen Negative U Benzodiazepines Scrn Negative Urine Cocaine Screen Negative Ur THC Screen Negative COVID-19 Source SARS-CoV-2 (PCR) 05/15/21 05/15/21 05/15/21 16:05 16:30 18:36 WBC RBC Hgb Hct MCV MCH MCHC RDW Plt Count MPV Immature Gran % Neutrophils % Lymphocytes % Monocytes % Eosinophils % Basophils % Nucleated RBC % Absolute Neutrophils Absolute Lymphocytes Absolute Monocytes Absolute Eosinophils Absolute Basophils Xanthochromia Sodium Potassium Chloride Carbon Dioxide Anion Gap BUN Creatinine Estimated GFR/1.73 m2 Glucose Calcium Magnesium 1.7 L Troponin I Vitamin B12 CSF Tube Number CSF Color CSF Clarity CSF WBC CSF RBC CSF Diff Comment CSF Glucose CSF Total Protein Salicylates < 2.8 Urine Opiates Screen Urine Methadone Screen Ur Barbiturates Screen Ur Tricyclics Screen Ur Amphetamines Screen U Benzodiazepines Scrn Urine Cocaine Screen Ur THC Screen COVID-19 Source Nasal/Nares SARS-CoV-2 (PCR) Negative 05/16/21 05/16/21 05/16/21 06:50 06:50 06:50 WBC 6.65 RBC 4.56 Hgb 12.8 Hct 39.9 MCV 87.5 MCH 28.1 MCHC 32.1 RDW 14.1 Plt Count 172 MPV 12.1 H Immature Gran % 0.5 Neutrophils % 60.8 Lymphocytes % 17.4 Monocytes % 20.2 Eosinophils % 0.3 Basophils % 0.8 Nucleated RBC % 0 Absolute Neutrophils 4.05 Absolute Lymphocytes 1.16 L Absolute Monocytes 1.34 H Absolute Eosinophils 0.02 Absolute Basophils 0.05 Xanthochromia Sodium 140 Potassium 4.3 D Chloride 104 Carbon Dioxide 27.6 Anion Gap 8.4 BUN 13 Creatinine 0.7 Estimated GFR/1.73 m2 >= 60.00 Glucose 88 Calcium 8.9 Magnesium 2.2 Troponin I Vitamin B12 CSF Tube Number CSF Color CSF Clarity CSF WBC CSF RBC CSF Diff Comment CSF Glucose CSF Total Protein Salicylates Urine Opiates Screen Urine Methadone Screen Ur Barbiturates Screen Ur Tricyclics Screen Ur Amphetamines Screen U Benzodiazepines Scrn Urine Cocaine Screen Ur THC Screen COVID-19 Source SARS-CoV-2 (PCR) 05/16/21 05/16/21 12:15 12:15 WBC RBC Hgb Hct MCV MCH MCHC RDW Plt Count MPV Immature Gran % Neutrophils % Lymphocytes % Monocytes % Eosinophils % Basophils % Nucleated RBC % Absolute Neutrophils Absolute Lymphocytes Absolute Monocytes Absolute Eosinophils Absolute Basophils Xanthochromia Absent Sodium Potassium Chloride Carbon Dioxide Anion Gap BUN Creatinine Estimated GFR/1.73 m2 Glucose Calcium Magnesium Troponin I Vitamin B12 CSF Tube Number 4 CSF Color Colorless CSF Clarity Clear CSF WBC 0 CSF RBC 2 CSF Diff Comment CSF Glucose 57 CSF Total Protein 52 H Salicylates Urine Opiates Screen Urine Methadone Screen Ur Barbiturates Screen Ur Tricyclics Screen Ur Amphetamines Screen U Benzodiazepines Scrn Urine Cocaine Screen Ur THC Screen COVID-19 Source SARS-CoV-2 (PCR)
[2021-05-16] MEDS: hydrALAZINE 20 MG/ML VIAL 10 MG IVP (16:18)
--- NOTE | 2021-05-16 17:59 | PGE_ITS ---
Date of Service Date of service: 05/16/21 Time of Service: 16:45 Assessment and Plan Assessment and plan (1) Fever: Start date: 05/16/21 Start time: 16:45 Status: Acute Assessment and plan: Fever last night Blood cultures done, LP today, as below no leukocytosis CXR with possible infiltrate, however no cough or wbc, likely not pneumonia, low on differential. (2) Altered mental status: Start date: 05/16/21 Start time: 16:45 Status: Acute Assessment and plan: LP ordered, acyclovir recommended by neuro with addition of hepes and lyme in addition to glucose, D/c keppra per neuro continue to monitor started on ceftriaxone 2 gm for possible lyme (3) Hypothyroidism: Start date: 05/16/21 Start time: 16:45 Status: Chronic Assessment and plan: TSH normal. Cont replacement tx. Qualifiers: Hypothyroidism type: acquired Qualified Code(s): E03.9 - Hypothyroidism, unspecified (4) Depressive disorder: Start date: 05/16/21 Start time: 16:45 Status: Chronic Assessment and plan: Cont escitalopram. (5) Restless leg syndrome: Start date: 05/16/21 Start time: 16:45 Status: Acute Assessment and plan: Cont gabapentin (6) Discharge planning issues: Start date: 05/16/21 Start time: 18:13 Status: Acute Assessment and plan: Once feeling better will have PT work with patient to decide if home is with no services is best option. discussed with Dr. jasso Subjective Subjective Patient reports: other Interval history since last seen: Febrile this afternoon, LP after becoming febrile overnight. Started on ceftriaxone and acyclovir. Trend no leukocytosis, actually going in the opposite direction, trending down. Lyme pending. CSF pending. Patient able to mentate but slow with words. CT with contrast recommended this afternoon by Dr. Rodrigues, results pending. Exam Narrative Exam Narrative: Patient had ambulated to the bathroom w/o assistance and ambulated back w/o difficulty. Const General: cooperative and no acute distress Nutritional Appearance: obese Orientation: awake and oriented to person [facility] Head: normocephalic and atraumatic Neck Neck: full ROM and no JVD Resp Effort & Inspection: normal respiratory effort Auscultation: clear to auscultation bilaterally Cardio Rate: regular rate Rhythm: regular rhythm Heart Sounds: S1 normal and S2 normal GI Palpation: soft and nontender Skin General skin exam: no rashes or lesions noted Neuro General: no focal motor deficits Cranial Nerves: no nystagmus and facial strength normal Speech: expressive aphasia (able to answer in short sentences. Some slowing of speech.) and other Gait: normal gait (Slow/cautious) Extrem General: no pedal edema and no calf tenderness Objective Last Vital Signs Temp 39.6 C H 05/16/21 16:19 Pulse 72 05/16/21 17:00 Resp 20 05/16/21 15:36 BP 138/84 05/16/21 17:00 Pulse Ox 95 05/16/21 15:36 Laboratory Results - last 24 hr 05/15/21 05/16/21 05/16/21 18:36 06:50 06:50 WBC RBC Hgb Hct MCV MCH MCHC RDW Plt Count MPV Immature Gran % Neutrophils % Lymphocytes % Monocytes % Eosinophils % Basophils % Nucleated RBC % Absolute Neutrophils Absolute Lymphocytes Absolute Monocytes Absolute Eosinophils Absolute Basophils Xanthochromia Sodium 140 Potassium 4.3 D Chloride 104 Carbon Dioxide 27.6 Anion Gap 8.4 BUN 13 Creatinine 0.7 Estimated GFR/1.73 m2 >= 60.00 Glucose 88 Calcium 8.9 Magnesium 2.2 CSF Tube Number CSF Color CSF Clarity CSF WBC CSF RBC CSF Diff Comment CSF Glucose CSF Total Protein Salicylates < 2.8 05/16/21 05/16/21 05/16/21 06:50 12:15 12:15 WBC 6.65 RBC 4.56 Hgb 12.8 Hct 39.9 MCV 87.5 MCH 28.1 MCHC 32.1 RDW 14.1 Plt Count 172 MPV 12.1 H Immature Gran % 0.5 Neutrophils % 60.8 Lymphocytes % 17.4 Monocytes % 20.2 Eosinophils % 0.3 Basophils % 0.8 Nucleated RBC % 0 Absolute Neutrophils 4.05 Absolute Lymphocytes 1.16 L Absolute Monocytes 1.34 H Absolute Eosinophils 0.02 Absolute Basophils 0.05 Xanthochromia Absent Sodium Potassium Chloride Carbon Dioxide Anion Gap BUN Creatinine Estimated GFR/1.73 m2 Glucose Calcium Magnesium CSF Tube Number 4 CSF Color Colorless CSF Clarity Clear CSF WBC 0 CSF RBC 2 CSF Diff Comment CSF Glucose 57 CSF Total Protein 52 H Salicylates
--- NOTE | 2021-05-16 20:57 | DI.CT_ITS ---
Exam(s) CT CHEST W EXAM: CT CHEST W CLINICAL HISTORY: r/o mass TECHNIQUE: Imaging Protocol: Axial computed tomography images with coronal and sagittal reformatted images were created and reviewed CONTRAST MATERIAL: Intravenous: Omnipaque 350 Contrast volume:70 ml. COMPARISON: CT CHEST WITH CONTRAST from 01/01/[address] THORAX ABD/PEL CTA from 09/26/[address] THORAX ABD/PEL CTA from 09/26/2020 CR XR CHEST 2V PA LATERAL from 05/16/2021 FINDINGS: Tracheobronchial tree: No bronchiectasis or mucous plugging. Mediastinum and Toyin: No dominant adenopathy or fluid collection. Pulmonary parenchyma: No perihilar infiltrate which was questioned on the chest x-ray. 8 millimeter diameter subsolid nodule at the periphery of the anterior right upper lobe, just above the minor fiss ure. Mild linear scarring right medial lung base. No visible emphysematous or fibrotic changes. Pleura: No effusion or pneumothorax. Heart: [id number] dilatation of the left atrium and left ventricle. Minimal coronary artery ca lcifications are seen. Aorta: Thoracic aorta non-dilated. Upper abdomen: Moderate size hiatal hernia, unchanged. Lymph nodes: Multiple new mildly enlarged lymph nodes are seen in the right paratracheal, superior ri ght hilum and anterior mediastinum. 1.9 cm in the right precarinal region. 2.1 centimeter superior right hilar node. Bones: Degenerative changes. No lytic or blastic lesion or fracture. Soft tissues: Stable area of parent scarring in the anteromedial left chest over the left pectoral mu scle. IMPRESSION: New 8 millimeters sub solid peripheral right upper lobe nodule, inflammatory versus neoplastic. Mult iple mildly enlarged mediastinal and right hilar lymph nodes. Short-term interval follow-up chest CT is recommended. Alternatively PET-CT. RADIATION DOSE DELIVERED: 647.81mGy.cm Total DLP DATA REPOSITORY: All CT scans at this facility are submitted to the National Radiology Data Registry (NRDR) Dose Index Registry (DIR) with the [employer] (A[employer]). RADIATION OPTIMIZATION: All CT scans at this facility use at least one of these dose optimization te chniques: automated exposure control; mA and/or kV adjustment per patient size (includes targeted exa ms where dose is matched to clinical indication); or iterative reconstruction.
[2021-05-16] MEDS: Omnipaque 350 MG/ML 100 ML BTL IJ (21:00)
--- NOTE | 2021-05-16 21:32 | DI.VRAD_ITS ---
PROCEDURE INFORMATION: Exam: CT Chest With Contrast; Diagnostic Exam date and time: 05/16/2021 3:01 PM Age: 75 years old Clinical indication: Mass, lump, or swelling in the chest; Patient HX: R/O mass seen on cxr TECHNIQUE: Imaging protocol: Diagnostic computed tomography of the chest with contrast. 3D rendering (Not supervised by radiologist): MIP and/or 3D reconstructed images were created by the technologist. Radiation optimization: All CT scans at this facility use at least one of these dose optimization techniques: automated exposure control; mA and/or kV adjustment per patient size (includes targeted exams where dose is matched to clinical indication); or iterative reconstruction. Contrast material: OMNI 350; Contrast volume: 70 ml; Contrast route: INTRAVENOUS (IV); COMPARISON: CT THORAX ABD/PEL CTA 09/26/2020 10:51 PM. CHEST RADIOGRAPH 05/16/2021. FINDINGS: Lungs: Lungs are relatively clear. A 0.8 cm subpleural nodule is observed in the right upper lobe, adjacent to the minor fissure. Mild linear opacity and ground-glass opacity in the right lower lobe adjacent to the spine are unchanged. No significant consolidation. Negative for endobronchial mucus. Pleural spaces: Unremarkable. No pneumothorax. No pleural effusion. Heart: Unremarkable. No cardiomegaly. No pericardial effusion. Aorta: Unremarkable. No aortic aneurysm. Lymph nodes: Mediastinal lymphadenopathy on the right is new from previous. A right precarinal lymph node measures 1.9 cm, previously 0.8 cm. A right peribronchial lymph node measures 2.1 cm, previously 0.7 cm. Additional smaller paratracheal and anterior mediastinal lymph nodes are present. No significant left-sided mediastinal or hilar lymphadenopathy. Negative for internal mammary or axillary lymphadenopathy. No evidence of supraclavicular lymphadenopathy. Bones/joints: Negative for compression fracture. Disc space narrowing and osteophyte formation are noted at multiple levels, moderate-severe at L1-L2. Sternum is intact. There are no rib fractures or rib lesions appreciated. Soft tissues: Unremarkable. IMPRESSION: 1. Right-sided mediastinal lymphadenopathy, new from previous. Reactive and neoplastic causes considered. 2. An 8 mm right upper lobe subpleural pulmonary nodule is new from previous, however a postinflammatory process is favored. 3. Follow-up imaging is advised, either short-term follow-up CT in 3 months or PET-CT. Dictated and Authenticated by: Temo Martinez MD. Ordering:STEVEN Zuniga MD
[2021-05-16] MEDS: Atorvastatin 40 MG TAB PO (23:05)
[2021-05-16] MEDS: Normal Saline 1,000 ML 125 ML IV (23:06)
[2021-05-17] VITALS (11 sets, daily range): BP systolic 117–179; BP diastolic 75–82; PULSE 65–82; RESP 16–22; TEMP 36.4–38.9; O2SAT 95–98
[2021-05-17] MEDS: Levothyroxine 100 MCG TAB PO (05:49)
[2021-05-17 07:18] LABS: Abs Immature Grans 0.01 10^3/uL (0.0-0.06); Absolute Basophil Count 0.03 10^3/uL (0.0-0.2); Absolute Eosinophil Count 0.03 10^3/uL (0.0-0.7); Absolute Lymphocyte Count 1.52 10^3/uL (1.2-3.4); Absolute Monocyte Count 0.56 10^3/uL (0.1-0.8); Absolute Neutrophil Count 1.07 10^3/uL (1.2-6.7); Basophils % 0.9; Eosinophils % 0.9; HCT 37.4 % (36.0-46.0); HGB 11.9 g/dL (11.2-15.7); Immature Grans % 0.3; Lymphocytes % 47.2; MCH 27.6 pg (27.0-33.0); MCHC 31.8 % (32.0-36.0); MCV 86.8 fL (80-95); MPV 11.8 fL (8.0-11.0); Monocytes % 17.4; Neutrophils % 33.3; Nucleated RBC 0 %; Platelet Count 153 10^3/uL (130-400); RBC 4.31 10^6/uL (3.93-5.22); RDW-SD 45.1 fL; WBC 3.22 10^3/uL (4.4-10.8)
[2021-05-17 07:28] LABS: Anion Gap 5.7 mmol/L (3-11); BUN 11 mg/dL (7-18); CO2 28.3 mmol/L (21.0-32.0); CREATININE 0.8 mg/dL (0.55-1.02); Calcium 8.4 mg/dL (8.5-10.1); Chloride 106 mmol/L (98-107); Glucose 95 mg/dL (74-106); Sodium 140 mmol/L (136-145)
[2021-05-17 07:45] LABS: HSV 1 DNA Result Negative (Negative); HSV 2 DNA Result Negative (Negative)
[2021-05-17] MEDS: Normal Saline 1,000 ML 125 ML IV (08:57)
[2021-05-17] MEDS: Letrozole 2.5 MG TAB PO (08:58)
[2021-05-17] MEDS: Omeprazole 20 MG CAPCR 40 MG PO (08:58)
[2021-05-17] MEDS: Escitalopram 10 MG TAB 20 MG PO (08:58)
[2021-05-17] MEDS: Gabapentin 300 MG CAP PO ×2 (08:59→21:18)
[2021-05-17] MEDS: Aspirin E.C. 81 MG TABEC PO (08:59)
[2021-05-17 10:16] LABS: Lyme Ab w Rflx to Lyme Confirm Negative (Negative)
--- NOTE | 2021-05-17 11:10 | CMPROGNOTE_ITS ---
- If Service Date Differs Date of service: 05/17/21 Time of Service: 11:10 Care Management Progress Note S/O:Daja was sitting up in bed when CM met with her. She was agreeable to conversation but stated that she does not feel well at all. She identified feeling very weak and stated that she cannot eat because she has no appetite. Daja was febrile last night with fevers as high as 103. While there has been no cause definitively identified, the provider has told her that she believes it may be Lyme disease. Daja also informed CM that she has been told that there is a spot on her lung. She shared that she had a lumpectomy about a year ago and stated I always felt it was going to come back. CM reminded her that further workup is needed to establish the exact nature of the nodule. Daja talked a lot about her family. She has one son and 3 daughters and several grandchildren. She shared that she has a grand daughter and a grandson who are both going to nursing school in [place] and she is very proud of them. She also talked about her [place] cat named Amadou. She is worried because she has been home alone but admitted that her daughter is going there tonight to care for her. A: Daja is a 75 year old woman admitted on 05/15/21 with altered mental status P:Anticipate Daja will return home once medically cleared. She will be driven home via [facility] private vehicle, coordinated by CM. She will follow up with her PCP, Neurologist and her discharge plan of care. CM will continue to follow and support Daja and her discharge planning concerns.
[2021-05-17] MEDS: cefTRIAXone 2 GM/50 ML BAG IVPB (13:49)
--- NOTE | 2021-05-17 15:53 | PGE_ITS ---
Date of Service Date of service: 05/17/21 Time of Service: 09:00 Assessment and Plan Assessment and plan (1) Fever: Start date: 05/17/21 Start time: 09:00 Status: Acute Assessment and plan: Fever last night last fever 0012 has not since. 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 No slurred speech, feels much better. (3) Hypothyroidism: Start date: 05/17/21 Start time: 09:00 Status: Chronic Assessment and plan: TSH normal. Cont replacement tx. Qualifiers: Hypothyroidism type: acquired Qualified Code(s): E03.9 - Hypothyroidism, unspecified (4) Depressive disorder: Start date: 05/17/21 Start time: 09:00 Status: Chronic Assessment and plan: Cont escitalopram. (5) Restless leg syndrome: Start date: 05/17/21 Start time: 09:00 Status: Acute Assessment and plan: Cont gabapentin (6) Discharge planning issues: Start date: 05/17/21 Status: Acute Assessment and plan: Once feeling better will have PT work with patient to decide if home is with no services is best option. discussed with Dr. jasso Subjective Subjective Patient reports: feels better Interval history since last seen: No sx of AMS or speech difficulty. HSV negative, acyclovir dcd. CT did reveal An 8 mm right upper lobe subpleural pulmonary nodule is new from previous, however a postinflammatory process is favored. Right-sided mediastinal lymphadenopathy, new from previous. Reactive and neoplastic causes considered. with f/u for [address] or PET scan. Afebrile at around 0012. Has not been febrile since. She is doing well continue to monitor. Will await test results and she must be fever free for 24 hours. BC NGTD Exam Const General: cooperative and no acute distress Nutritional Appearance: obese Orientation: awake and oriented to person [facility] Head: normocephalic and atraumatic Neck Neck: full ROM and no JVD Resp Effort & Inspection: normal respiratory effort Auscultation: clear to auscultation bilaterally Cardio Rate: regular rate Rhythm: regular rhythm Heart Sounds: S1 normal and S2 normal GI Palpation: soft and nontender Skin General skin exam: no rashes or lesions noted Neuro General: no focal motor deficits Cranial Nerves: no nystagmus and facial strength normal Speech: speech normal Gait: normal gait Extrem General: no pedal edema and no calf tenderness Objective Last Vital Signs Temp 36.8 C 05/17/21 11:22 Pulse 65 05/17/21 11:22 Resp 22 05/17/21 11:22 BP 151/77 H 05/17/21 11:22 Pulse Ox 98 05/17/21 11:22 Laboratory Results - last 24 hr 05/15/21 05/16/21 05/17/21 16:05 12:15 06:53 WBC RBC Hgb Hct MCV MCH MCHC RDW Plt Count MPV Immature Gran % Neutrophils % Lymphocytes % Monocytes % Eosinophils % Basophils % Nucleated RBC % Absolute Neutrophils Absolute Lymphocytes Absolute Monocytes Absolute Eosinophils Absolute Basophils Sodium 140 Potassium 4.0 Chloride 106 Carbon Dioxide 28.3 Anion Gap 5.7 BUN 11 Creatinine 0.8 Estimated GFR/1.73 m2 >= 60.00 Glucose 95 Calcium 8.4 L Lyme Disease Antibody Negative HSV Source Description Not Applicable HSV I DNA PCR Negative HSV II DNA PCR Negative 05/17/21 06:53 WBC 3.22 L D RBC 4.31 Hgb 11.9 Hct 37.4 MCV 86.8 MCH 27.6 MCHC 31.8 L RDW 14.0 Plt Count 153 MPV 11.8 H Immature Gran % 0.3 Neutrophils % 33.3 Lymphocytes % 47.2 Monocytes % 17.4 Eosinophils % 0.9 Basophils % 0.9 Nucleated RBC % 0 Absolute Neutrophils 1.07 L Absolute Lymphocytes 1.52 Absolute Monocytes 0.56 Absolute Eosinophils 0.03 Absolute Basophils 0.03 Sodium Potassium Chloride Carbon Dioxide Anion Gap BUN Creatinine Estimated GFR/1.73 m2 Glucose Calcium Lyme Disease Antibody HSV Source Description HSV I DNA PCR HSV II DNA PCR
[2021-05-17] MEDS: Acetaminophen 325 MG TAB 650 MG PO (17:46)
[2021-05-17] MEDS: Atorvastatin 40 MG TAB PO (21:18)
[2021-05-18] VITALS (7 sets, daily range): BP systolic 134–166; BP diastolic 73–85; PULSE 61–75; RESP 16–18; TEMP 36.4–37.7; O2SAT 98–99
[2021-05-18 00:20] LABS: Anaplasma phagocytophilum Negative (Negative); B. miyamotoi PCR Negative (Negative); Babesia divergens/MO-1 Negative (Negative); Babesia duncani Negative (Negative); Babesia microti Negative (Negative); Ehrlichia chaffeensis Negative (Negative); Ehrlichia ewingii/canis Negative (Negative); Ehrlichia muris eauclairensis Negative (Negative)
[2021-05-18] MEDS: Acetaminophen 325 MG TAB 650 MG PO (04:12)
[2021-05-18] MEDS: Normal Saline Flush 10 ML SYR IVP ×2 (04:21→10:38)
[2021-05-18] MEDS: Levothyroxine 100 MCG TAB PO (06:04)
[2021-05-18 07:55] LABS: Absolute Basophil Count 0.02 10^3/uL (0.0-0.2); Absolute Eosinophil Count 0.26 10^3/uL (0.0-0.7); Absolute Monocyte Count 0.72 10^3/uL (0.1-0.8); Basophils % 0.5; Eosinophils % 5.9; HCT 37.3 % (36.0-46.0); HGB 12.2 g/dL (11.2-15.7); Lymphocytes % 31.8; MCHC 32.7 % (32.0-36.0); MCV 85.7 fL (80-95); MPV 12.3 fL (8.0-11.0); Monocytes % 16.4; Neutrophils % 45.4; Nucleated RBC 0 %; Platelet Count 139 10^3/uL (130-400); RBC 4.35 10^6/uL (3.93-5.22); RDW-SD 44.5 fL
[2021-05-18 08:15] LABS: BUN 8 mg/dL (7-18); CREATININE 0.7 mg/dL (0.55-1.02); Calcium 8.7 mg/dL (8.5-10.1); Chloride 107 mmol/L (98-107); Glucose 97 mg/dL (74-106); Potassium 3.7 mmol/L (3.5-5.1); Sodium 141 mmol/L (136-145)
[2021-05-18] MEDS: Letrozole 2.5 MG TAB PO (10:37)
[2021-05-18] MEDS: Escitalopram 10 MG TAB 20 MG PO (10:37)
[2021-05-18] MEDS: Gabapentin 300 MG CAP PO ×2 (10:38→20:19)
[2021-05-18] MEDS: Aspirin E.C. 81 MG TABEC PO (10:38)
[2021-05-18] MEDS: Omeprazole 20 MG CAPCR 40 MG PO (10:39)
--- NOTE | 2021-05-18 15:16 | W.PM.PROGNOT ---
Date of Service Date of service: 05/18/21 Time of Service: 15:16 Assessment and Plan Assessment and plan (1) Fever: Start date: 05/18/21 Start time: 15:19 Status: Resolved Assessment and plan: Resolved Blood cultures NGTD after 96 hours Lyme panel negative normal leukocytosis, lost IV will transition to po doxy and cefpdoxime lyme specimen still pending CT revealing 8 mm nodule question neoplasm, recommend CT in 3 months or PET scan Possible discharge in am (2) Altered mental status: Start date: 05/18/21 Start time: 15:21 Status: Resolved Assessment and plan: Patient is mentating without any difficulty. No slurred speech, feels much better. (3) Hypothyroidism: Start date: 05/18/21 Start time: 15: Status: Chronic Assessment and plan: TSH normal. Cont replacement tx. Qualifiers: Hypothyroidism type: acquired Qualified Code(s): E03.9 - Hypothyroidism, unspecified (4) Depressive disorder: Start date: 05/18/21 Start time: 15:21 Status: Chronic Assessment and plan: Cont escitalopram. (5) Restless leg syndrome: Start date: 05/18/21 Start time: 15:21 Status: Acute Assessment and plan: Cont gabapentin (6) Discharge planning issues: Start date: 05/18/21 Start time: 15: Status: Acute Assessment and plan: PT eval to assess home needs. discussed with Subjective Subjective Patient reports: other Interval history since last seen: Patient so far all tests negative. Lost IV today. Still not convinced not lyme, however ceftriaxone has been working will treat with cefpodxime and doxy until lyme specimen source comes back. Fever defervesced afebrile since 05/17 19. Working with PT possible discharge tomorrow or Thursday will need either PET scan or CT in 3 months 8 mm nodule found on lung. Exam Narrative Exam Narrative: Patient had ambulated to the bathroom w/o assistance and ambulated back w/o difficulty. Const General: cooperative and no acute distress Nutritional Appearance: obese Orientation: awake and oriented to person [facility] Head: normocephalic and atraumatic Neck Neck: full ROM and no JVD Resp Effort & Inspection: normal respiratory effort Auscultation: clear to auscultation bilaterally Cardio Rate: regular rate Rhythm: regular rhythm Heart Sounds: S1 normal and S2 normal GI Palpation: soft and nontender Skin General skin exam: no rashes or lesions noted Neuro General: no focal motor deficits Cranial Nerves: no nystagmus and facial strength normal Speech: speech normal Gait: normal gait Extrem General: no pedal edema and no calf tenderness Objective Last Vital Signs Temp 36.4 C L 05/18/21 11:30 Pulse 61 05/18/21 11:30 Resp 17 05/18/21 11:30 BP 162/74 H 05/18/21 11:30 Pulse Ox 98 05/18/21 11:30 Laboratory Results - last 24 hr 05/15/21 05/18/21 05/18/21 16:05 07:07 07:07 WBC 4.40 D RBC 4.35 Hgb 12.2 Hct 37.3 MCV 85.7 MCH 28.0 MCHC 32.7 RDW 14.0 Plt Count 139 MPV 12.3 H Immature Gran % 0.0 Neutrophils % 45.4 Lymphocytes % 31.8 Monocytes % 16.4 Eosinophils % 5.9 Basophils % 0.5 Nucleated RBC % 0 Absolute Neutrophils 2.00 Absolute Lymphocytes 1.40 Absolute Monocytes 0.72 Absolute Eosinophils 0.26 Absolute Basophils 0.02 Sodium 141 Potassium 3.7 Chloride 107 Carbon Dioxide 27.0 Anion Gap 7.0 BUN 8 Creatinine 0.7 Estimated GFR/1.73 m2 >= 60.00 Glucose 97 Calcium 8.7 A.phagocytophil DNA PCR Negative B. divergens/MO-1 PCR Negative Babesia duncani (PCR) Negative Babesia microti DNA PCR Negative Borrelia (PCR) Negative Lyme Disease Antibody Negative E.chaffeensis DNA (PCR) Negative E.ewingii/canis DNA PCR Negative E. muris-like DNA (PCR) Negative
[2021-05-18] MEDS: Doxycycline Hyclate 100 MG CAP PO (17:52)
[2021-05-18] MEDS: Atorvastatin 40 MG TAB PO (21:38)
[2021-05-19 04:00] VITALS: BP 165/83; PULSE 65; RESP 20; TEMP 35.7; O2SAT 96
[2021-05-19] MEDS: Levothyroxine 100 MCG TAB PO (06:43)
[2021-05-19] MEDS: Doxycycline Hyclate 100 MG CAP PO (06:43)
[2021-05-19] MEDS: Omeprazole 20 MG CAPCR 40 MG PO (06:43)
[2021-05-19 07:07] LABS: HCT 38.1 % (36.0-46.0); HGB 12.3 g/dL (11.2-15.7); MCHC 32.3 % (32.0-36.0); MCV 86.6 fL (80-95); MPV 11.4 fL (8.0-11.0); Nucleated RBC 0 %; Platelet Count 144 10^3/uL (130-400); RDW 13.9 % (11.7-14.6); WBC 4.39 10^3/uL (4.4-10.8)
[2021-05-19 07:20] LABS: Anion Gap 7.1 mmol/L (3-11); BUN 8 mg/dL (7-18); CO2 28.9 mmol/L (21.0-32.0); CREATININE 0.8 mg/dL (0.55-1.02); Calcium 8.8 mg/dL (8.5-10.1); Chloride 104 mmol/L (98-107); Glucose 96 mg/dL (74-106); Potassium 4.1 mmol/L (3.5-5.1); Sodium 140 mmol/L (136-145)
[2021-05-19 07:39] VITALS: BP 168/85; PULSE 61; RESP 17; TEMP 36.5; O2SAT 96
[2021-05-19 07:40] LABS: Absolute Basophil Count 0.04 10^3/uL (0.0-0.2); Absolute Eosinophil Count 0.35 10^3/uL (0.0-0.7); Absolute Lymphocyte Count 1.23 10^3/uL (1.2-3.4); Absolute Monocyte Count 0.44 10^3/uL (0.1-0.8); Absolute Neutrophil Count 2.33 10^3/uL (1.2-6.7); Atypical Lymphocytes % 3; Diff Comment Manual Differential; RBC Morphology Normal
[2021-05-19] MEDS: Letrozole 2.5 MG TAB PO (07:41)
[2021-05-19] MEDS: Aspirin E.C. 81 MG TABEC PO (07:41)
[2021-05-19] MEDS: Gabapentin 300 MG CAP PO (07:41)
[2021-05-19] MEDS: Escitalopram 10 MG TAB 20 MG PO (07:41)
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
--- NOTE | 2021-05-19 10:12 | PDOC.HHF2F_ITS ---
Home Health Certification Home Health Certification: 1. Encounter Date and Reason I certify that Daja Tolentino was seen by Marianela Perez on 05/19/21 and that I had a [id number] encounter with this patient that meets the physician face to face encounter requirements. 2. Clinical Findings Supporting Skilled Need and Homebound Status I certify that home health services are medically necessary, include either intermittent group home and/or physical/speech therapy, and that this patient is homebound in that absences from the home require considerable and taxing effort and are infrequent or of short duration, or are attributable to the need to receive medical care. [X] (a) Attached documentation from encounter provides clinical findings supporting skilled need and homebound status (including what assistance patient requires to leave the home). The encounter with the patient was in whole, or in part, for the following medical condition, which is the primary reason for home health care: Encephalopathy Half-Way: routine nursing evaluation and medication oversight Physical and occupational Therapy: routine evaluation and treatment Homebound: unable to safely leave house unattended 3. Certification and Authentication I certify that I composed the above information based on my clinical judgement relating to this patient's medical condition and, if applicable, clinical findings communicated to me by the NPP or inpatient physician who performed the Home Health Referral. All further orders will be obtained through _Candie Guy MD_(Community Based Physician - PCP)
--- NOTE | 2021-05-19 10:19 | IN_ITS ---
Date of service: 05/19/21 Time of Service: 10:19 PT Notes Visit Reasons: Encephalopathy Physical Therapy Inpatient Initial Evaluation Date: 05/19/2021 Referring Doctor: Nadia Pham NP PT Orders: PT CONSULT: Eval/Treat Precautions: Fall. Standard. Activity as tolerated. Patient Profile/Admitting Diagnosis: Daja is an 75-year-old female who presented to the ED on 05/19/2021 with confusion, and slowed verbal responses with report of vomiting and loose stools earlier in the morning of admission. Patient is diagnosed with altered mental status, hypothyroidism, depression, restless leg syndrome and fever. PMHX: Medical History Anxiety (09/21/17) Chronic pain due to injury (02/13/16) Depressive disorder Elevated fasting glucose Essential hypertension (09/12/13) Excessive cerumen in right ear canal Gastroesophageal reflux disease with esophagitis 06/15 EGD: GASTRITIS, GASTRIC POLYP, HIATAL HERNIA Hypothyroidism (09/27/08) Insomnia (08/13/16) Invasive ductal carcinoma of left breast (06/23/19) pT1c, pN0(sn), ER+/AZ+, HER2/MARTIN 1+/NEG Low back pain of multiple sites of spine with sciatica (10/06/13) Lumbago (10/06/13) Right ear pain Vitamin B12 deficiency (04/25/14) Wrist pain, right (06/29/17) Surgical History Biopsy of breast H/O colonoscopy (06/15/09) History of esophagogastroduodenoscopy (06/15/09) Hysterectomy, Laproscopic S/P lumpectomy, left breast (06/23/19) s/p left breast lumpectomy and left axillary sentinel node biopsy; (Dr. Liya Hernandez, [facility], [place], [place]) Status post total right knee replacement (04/07/18) [place] [facility] [place] [facility] [place] Social History/Home Situation: [facility] to [facility]. Has Meals on Wheels. Daughter assists with transportation whenever needed. Son brought her recently a scooter which she uses for short community distances. Equipment Owned/DME: Scooter, standard walker Subjective: States that she is going home today. Indicated that her R side is generally weaker than her L side. Rpeorts that she has leg length discrepancy and has a lift inside one of her shoes. Denies any dizziness, headache, chest pain throughout session. Objective: General Observation: Seated at edge of bed Mental Status: Alert and oriented as to person, place, time, and purpose. Able to pay attention, focus, and respond appropriately. Pain: 0/10 ROM: Right Upper Extremity: Shoulder Flexion WFL. Shoulder abduction WFL. Elbow flexion WFL. Wrist flexion WFL. Functional opening and closing of hand WFL. Left Upper Extremity: Shoulder Flexion WFL. Shoulder abduction WFL. Elbow flexion WFL. Wrist flexion WFL. Functional opening and closing of hand WFL. Right Lower Extremity: Hip flexion WFL. Hip abduction WFL. Knee flexion WFL. Ankle dorsiflexion WFL. Ankle plantarflexion WFL. Left Lower Extremity: Hip flexion WFL. Hip abduction WFL. Knee flexion WFL. Ankle dorsiflexion WFL. Ankle plantarflexion WFL. Strength: Right Upper Extremity: Shoulder flexors 4/5. Shoulder abductors 4/5. Elbow flexors 5/5. Elbow extensors 5/5. Supply Chain Design Manager strong. Left Upper Extremity: Shoulder flexors 5/5. Shoulder abductors 5/5. Elbow flexors 5/5. Elbow extensors 5/5. Supply Chain Design Manager strong. Right Lower Extremity: Hip flexors 4/5. Hip abductors 5/5. Knee flexors 4/5. Knee extensors 4/5. Ankle dorsiflexors 5/5. Ankle plantarflexors 5/5. Left Lower Extremity: Hip flexors 5/5. Hip abductors 5/5. Knee flexors 5/5. Knee extensors 5/5. Ankle dorsiflexors 5/5. Ankle plantarflexors 5/5. Bed Mobility/Transfers: Rolling with [] cues for safe/correct technique Supine to sit independent Sit to supine independent Sit to stand independent Stand to sit independent Bed to reclining chair independent Reclining chair to bed independent Gait: Instructed patient with level surface ambulation of 100 feet requiring supervision assist. No LE. No SOB. No path deviation. Balance: Static Sitting: Normal Dynamic Sitting: Normal Static Standing: Good Dynamic Standing: Fair Special Tests: Mobility Limitations Standardized Measure [facility] AM-PAC 6 clicks Basic Mobility Inpatient Short Form: Raw Score: 24 CMS Score: 0% deficit Informed Consent/Education: Patient was instructed in purpose of PT consult and plan of care. Agreeable to proceed with established PT POC to achieve personal goals. Assessment: Requires walker for all mobility ADL performance to maximize independence fall risk at discharge destination. May benefit from having home health PT home safety check in order to increase ability to provide guarding. Patient presents with clinical signs and symptoms consistent with current/admitting diagnoses that have resulted to mobility limitations, gait instability, generalized weakness, and overall ADL decline as demonstrated by the following impairment level findings: 1. Decreased strength to right shoulder and hip major muscle groups 2. Impaired standing balance 3. Impaired activity tolerance Impairments are contributing to the following functional limitations: 1. Difficulty with ambulation without assistive device and physical assistance Patient is assessed as a 39343 moderate complexity based on the following: History: 75 year-old female with past medical history as indicated above Examination: Demonstrable impairment in strength, balance, and mobility level with underlying impairments and functional limitations as exhibited above as well as deficit score of 0% utilizing the [facility] Mobility Inpatient Short Form Presentation: Stable Decision Makin moderate complexity Goals: N/A. PT evaluation only. Plan of Care/Treatment Plan: N/A. PT evaluation only. DISCHARGE RECOMMENDATIONS: Home when medically cleared by hospitalist. Requires the use of a front wheeled walker to maximize independence at home. Home safety visit needed from home health PT in order to reduce fall risk at home. TREATMENT CODE/TIME: 44421 x 24 minutes beginning at 10:19 AM. Thank you for the opportunity to participate in the care of this patient. Ramila Torres PT, DPT, CLT [facility] [place], [place]
[2021-05-19 11:45] VITALS: BP 133/72; PULSE 68; RESP 18; TEMP 36.4; O2SAT 96
--- NOTE | 2021-05-19 12:23 | PDOC.CMDIS ---
- If Service Date Differs Date of service: 05/19/21 Time of Service: 12:23 LACE Index Scoring Tool - Questions: Length of Stay (in days): 2 Acuity (Admit via E.D.?): Yes Comorbidities: Metastatic Solid Tumor E.D. Visits: 3 - Answers: Total Score: 13 Risk of Readmission: High Risk Care Management Discharge Reason for Hospitalization: AMS Discharge Plan: Discharge home with [facility] SN/OT/PT via private vehicle with daughter. Daja will follow up with her community providers and has and appointment with her PCP on 05/21 @1100. notified [facility] of referral and discharge today. Daja will receive a front wheeled walker, arranged by PT. Patient/Family Education Needs: Review of discharge instructions and plan to follow up with community providers. ask me three.
[2021-05-19 19:19] LABS: Specimen Source SPINAL FLUID
[2021-05-21 16:54] LABS: Adenovirus PCR Negative (Negative); Specimen Source CSF
== END 2021-05-19 12:00 | disposition home health service (06) | DRG 71 ==
LOC: ER 17:00 → MS 05-16 08:19
PROVIDERS: Family Medicine; Nurse Practitioner Acute Care; Nurse Practitioner Family; Student in an Organized Health Care Education/Training Program; Admitting Provider Internal Medicine; Emergency Provider Emergency Medicine; Visit Provider Internal Medicine
DX: G93.40 Encephalopathy, unspecified (principal); I67.89 Other cerebrovascular disease; B34.9 Viral infection, unspecified; E03.9 Hypothyroidism, unspecified; F32.9 Major depressive disorder, single episode, unspecified; G25.81 Restless legs syndrome; Z86.73 Personal history of transient ischemic attack (TIA), and cerebral infarction without residual deficits; I10 Essential (primary) hypertension; F41.9 Anxiety disorder, unspecified; G89.29 Other chronic pain; K21.00 Gastro-esophageal reflux disease with esophagitis, without bleeding; G47.00 Insomnia, unspecified; Z85.3 Personal history of malignant neoplasm of breast; M54.40 Lumbago with sciatica, unspecified side; E53.8 Deficiency of other specified B group vitamins; Z20.822 Contact with and (suspected) exposure to COVID-19; E87.6 Hypokalemia; E83.42 Hypomagnesemia; E86.0 Dehydration; R50.9 Fever, unspecified; R59.0 Localized enlarged lymph nodes; R91.1 Solitary pulmonary nodule; R47.1 Dysarthria and anarthria
CPT/HCPCS: 36410; 36415; 36416; 70496; 70498; 80048; 80053; 80307; 82945; 82962; 87040; 87529; 87635; 87798; 89050; 89051; 93005; 95816; 97162; 99215; 99225; 99285; 70450; 70551; 71046; 71260; 80329; 81003; 81015; 82607; 83605; 83735; 84157; 84443; 84484; 85025; 85610; 86618; 87070; 87205; 87476; 93010; 99220; 99226; 99231; 99232; 99239; J0133; J0360; J1644; J1953; J3490

== ENCOUNTER → 2021-05-16 08:01 | Outpatient (BNVA) | payer MEDICARE, MEDICAID, SELFPAY | PROVIDERS: Visit Provider Psychiatry & Neurology Neurology | DX: R69 Illness, unspecified (principal) ==

== ENCOUNTER 2021-07-03 02:38 | Outpatient (CLI) | payer MEDICARE, MEDICAID, SELFPAY ==
--- NOTE | 2021-07-03 08:30 | DI.MAMMO_ITS ---
Exam(s) MG MAMMO SCREENING 60 MIN DUR EXAM: MG MAMMO SCREENING 60 MIN DUR CLINICAL HISTORY: breast cancer screening,PERSONAL H/O BREAT CA,AXILLARY FULLNESS,Z85.3,R22.2. TECHNIQUE: Bilateral full field digital CC and MLO mammographic images were obtained with 3D tomosyn thesis and utilizing computer aided detection (CAD). COMPARISON: Prior mammograms dating back to 2011, the most recent being June 2020. This patient underwent left breast lumpectomy for malignancy in June 2019.. FINDINGS: There has been no significant change in the appearance and distribution of the fibroglandular tissue. Appearance of the left breast lumpectomy site is stable from June 2020. There are no new spiculated masses nor malignant appearing microcalcification groups. Small benign-appearing nodules in both breasts are unchanged. No new significant architectural distortion. IMPRESSION: Stable appearance of left breast lumpectomy site. Stable benign-appearing bilateral findings. BI-RADS Category 2 - Benign Findings Breast Density - Category B - Scattered areas of fibroglandular density Breast density Category C or D implies that the patient has dense breast tissue. Dense breast tissue can make it harder to find cancer on a mammogram. Dense breast tissue is also associated with an incr eased risk of breast cancer. This information about the result of the mammogram report was provided to the patient to raise their awareness. Use this report when you speak with the patient about their risks for breast cancer, which includes their family history. At that time, you may recommend additional screening tests (Ultrasoun d or MRI) as these tests may add significant information. A negative radiographic report should not delay biopsy if a dominant or clinically suspicious mass is present. Up to ten percent of cancers are not identified on mammography. A negative report may reinforce clinical impression. Adenosis and dense breasts may obscure an underlying neoplasm. False positive reports average 6 to 10%. Patient will receive a letter notifying them of these results.
== END 2021-07-03 02:58 ==
DX: R22.2 Localized swelling, mass and lump, trunk (principal); Z85.3 Personal history of malignant neoplasm of breast; Z12.31 Encounter for screening mammogram for malignant neoplasm of breast
CPT/HCPCS: 77063; 77067

== ENCOUNTER → 2021-07-11 14:51 | Outpatient (BNVA) | payer MEDICARE, MEDICAID, SELFPAY | PROVIDERS: Visit Provider Psychiatry & Neurology Neurology | DX: G45.9 Transient cerebral ischemic attack, unspecified (principal); E61.1 Iron deficiency; G25.81 Restless legs syndrome; R41.0 Disorientation, unspecified | CPT/HCPCS: 99213 ==

== ENCOUNTER 2021-08-09 01:28 | Outpatient (CLI) | payer MEDICARE, MEDICAID, SELFPAY ==
[2021-08-09] MEDS: Omnipaque 350 MG/ML 100 ML BTL 70 ML IJ (09:45)
[2021-08-09] MEDS: Normal Saline Flush 10 ML SYR IVP (09:48)
--- NOTE | 2021-08-09 10:13 | DI.CT_ITS ---
Exam(s) CT CHEST W EXAM: CT CHEST W CLINICAL HISTORY: F/U of 05/16/21 , right upper lobe, inflam. vs neoplASM,R91.1,NODULE TECHNIQUE: Imaging Protocol: Axial computed tomography images with coronal and sagittal reformatted images were created and reviewed CONTRAST MATERIAL: Intravenous: Omnipaque 350 Contrast volume:70 mL. COMPARISON: CT CHEST WITH CONTRAST from 01/01/2009 CT CHEST WITH CONTRAST from 01/01/[address] CHEST W from 05/16/[address] CHEST W from 05/16/2021 FINDINGS: Tracheobronchial tree: Patent where visualized. Pulmonary parenchyma: The nodular opacity in the anterior right upper lobe has resolved. No architec tural distortion. There is a stable area of pleural scarring in the left upper lobe laterally. This is unchanged dating back to the examination from 01/01/2009. No new pulmonary nodules are seen. Ther e are mild dependent atelectatic changes in the lungs. No focal consolidating infiltrates are seen. Mediastinum and [place]: There has been an interval decrease in size of several of the mediastinal lymph nodes. There is a right paratracheal lymph node at the level of the aortic arch now measuring 1 x 1 .3 cm. This compares to 1.5 x 2 cm. There is also been interval decrease in size of the right hilar lymph node. It currently measures 2.1 AP by 1.8 transverse. This compares to 2.5 AP by 2.3 transve rse. There is a large hiatal hernia. Thyroid gland: Unremarkable. Pleura: No effusion or pneumothorax. Heart: The heart is not dilated. Coronary artery calcification. No pericardial effusion. Aorta: Thoracic aorta non-dilated. Atherosclerosis. Upper abdomen: Fatty infiltration of the liver. Lymph nodes: Please see the above discussion. Bones: Within normal limits for the patient's age. Soft tissues: Unremarkable. IMPRESSION: 1. Interval resolution of the nodular opacity in the anterior aspect of the right upper lobe. 2. No new pulmonary nodules. 3. Interval decrease in size of the mediastinal and hilar lymph nodes since 05/16/2021. A follow-up CT scan of the chest in 3-6 months is recommended for monitoring of the mediastinal lymph nodes. RADIATION DOSE DELIVERED: 549.89mGy.cm Total DLP DATA REPOSITORY: All CT scans at this facility are submitted to the National Radiology Data Registry (NRDR) Dose Index Registry (DIR) with the [employer] ([employer]). RADIATION OPTIMIZATION: All CT scans at this facility use at least one of these dose optimization te chniques: automated exposure control; mA and/or kV adjustment per patient size (includes targeted exa ms where dose is matched to clinical indication); or iterative reconstruction.
[2021-08-09 11:45] LABS: Ferritin 50 ng/mL (8-252)
== END 2021-08-09 01:48 ==
PROVIDERS: Psychiatry & Neurology Neurology
DX: R91.1 Solitary pulmonary nodule
CPT/HCPCS: 71260; 82728; J3490

== ENCOUNTER 2022-01-08 08:40 | Outpatient (CLI) | payer MEDICARE, MEDICAID, SELFPAY ==
--- NOTE | 2022-01-08 06:52 | DI.CT_ITS ---
Exam(s) CT CHEST W EXAM: CT CHEST W CLINICAL HISTORY: F/U mediastinal lymph nodes,incidental lung nodule,r91.1 TECHNIQUE: Imaging Protocol: Axial computed tomography images with coronal and sagittal reformatted images were created and reviewed CONTRAST MATERIAL: Intravenous: Omnipaque 350 Contrast volume:70 ml. COMPARISON: CT CT THORAX ABD/PEL CTA from 09/26/[address] CHEST W from 05/16/[address] CHEST W from 08/09/2021 FINDINGS: Tracheobronchial tree: No bronchiectasis or mucous plugging. Pulmonary parenchyma: No consolidation or dominant measurable mass. Stable nodule peripheral left upp er lobe 3 millimeters. Pleura: No effusion or pneumothorax. No emphysematous or fibrotic changes. Heart: The heart is mildly dilated. Mild coronary artery calcifications are seen. Aorta: Thoracic aorta non-dilated. Mild atherosclerotic changes. Upper abdomen: Moderate size hiatal hernia. Lymph nodes: Decreased size of right paratracheal lymph node, now measuring 12 x 7 millimeters. Righ t hilar lymph node now measured at 12 x 14 millimeters, decreasing from 2.1 x 1.8 cm. Bones: Osteophytes in thoracic spine. No compression fracture, lytic or blastic lesion. Soft tissues: Unremarkable. IMPRESSION: Continued decrease in size of mediastinal and right hilar lymph nodes. No new abnormalities. RADIATION DOSE DELIVERED: 609.16mGy.cm Total DLP DATA REPOSITORY: All CT scans at this facility are submitted to the National Radiology Data Registry (NRDR) Dose Index Registry (DIR) with the [employer] ([employer]). RADIATION OPTIMIZATION: All CT scans at this facility use at least one of these dose optimization te chniques: automated exposure control; mA and/or kV adjustment per patient size (includes targeted exa ms where dose is matched to clinical indication); or iterative reconstruction.
[2022-01-08 09:05] LABS: CREATININE 0.8 mg/dL (0.55-1.02)
[2022-01-08] MEDS: Omnipaque 350 MG/ML 100 ML BTL IJ (09:54)
[2022-01-08] MEDS: Normal Saline Flush 10 ML SYR IVP (09:55)
== END 2022-01-08 09:00 ==
DX: R91.1 Solitary pulmonary nodule (principal); Z01.812 Encounter for preprocedural laboratory examination; R59.0 Localized enlarged lymph nodes; K44.9 Diaphragmatic hernia without obstruction or gangrene
CPT/HCPCS: 71260; 82565; J3490

== ENCOUNTER → 2022-06-03 10:46 | Outpatient (BNVA) | payer MEDICARE, MEDICAID, SELFPAY | PROVIDERS: PCP Family Medicine; Referring Provider Family Medicine; Visit Provider Psychiatry & Neurology Neurology | DX: I69.398 Other sequelae of cerebral infarction (principal); R51.9 Headache, unspecified; Z79.82 Long term (current) use of aspirin; Z79.02 Long term (current) use of antithrombotics/antiplatelets; M17.12 Unilateral primary osteoarthritis, left knee; Z96.651 Presence of right artificial knee joint; R41.0 Disorientation, unspecified; G25.81 Restless legs syndrome; E61.1 Iron deficiency | CPT/HCPCS: 99214 ==

== ENCOUNTER → 2022-08-26 08:41 | Outpatient (BNVA) | payer MEDICARE, MEDICAID, SELFPAY | PROVIDERS: Visit Provider Psychiatry & Neurology Neurology | DX: R26.89 Other abnormalities of gait and mobility (principal); Z96.651 Presence of right artificial knee joint; M17.12 Unilateral primary osteoarthritis, left knee; Z86.73 Personal history of transient ischemic attack (TIA), and cerebral infarction without residual deficits; Z79.02 Long term (current) use of antithrombotics/antiplatelets; Z79.82 Long term (current) use of aspirin; R41.3 Other amnesia; I10 Essential (primary) hypertension; E61.1 Iron deficiency; G25.81 Restless legs syndrome | CPT/HCPCS: 99215 ==

== ENCOUNTER → 2022-10-28 07:14 | Outpatient (BNVA) | payer MEDICARE, MEDICAID, SELFPAY | PROVIDERS: Visit Provider Psychiatry & Neurology Neurology ==

== ENCOUNTER → 2022-10-30 07:26 | Outpatient (BNVA) | payer MEDICARE, MEDICAID, SELFPAY | PROVIDERS: PCP Nurse Practitioner Family; Referring Provider Nurse Practitioner Family; Visit Provider Psychiatry & Neurology Neurology | DX: R41.3 Other amnesia (principal); Z86.73 Personal history of transient ischemic attack (TIA), and cerebral infarction without residual deficits; R26.89 Other abnormalities of gait and mobility; E61.1 Iron deficiency; G25.81 Restless legs syndrome; M54.40 Lumbago with sciatica, unspecified side | CPT/HCPCS: 99442 ==

== ENCOUNTER → 2022-12-24 10:43 | Outpatient (BNVA) | payer MEDICARE, MEDICAID, SELFPAY | PROVIDERS: PCP Nurse Practitioner Family; Referring Provider Nurse Practitioner Family; Visit Provider Psychiatry & Neurology Neurology | DX: Z86.73 Personal history of transient ischemic attack (TIA), and cerebral infarction without residual deficits (principal); Z79.82 Long term (current) use of aspirin; Z96.651 Presence of right artificial knee joint; M17.12 Unilateral primary osteoarthritis, left knee; Z09 Encounter for follow-up examination after completed treatment for conditions other than malignant neoplasm | CPT/HCPCS: 99214 ==